=== PATIENT | female | born 1940 | race Caucasian/White ===

== ENCOUNTER → 2016-06-04 | Outpatient (CLI) | payer BC, MEDICARE ==
--- NOTE | 2016-06-05 09:29 | MM ---
Reason for exam: screening (asymptomatic). Last mammogram was performed 1 year and 1 month ago. History: Patient is postmenopausal and has history of other cancer at age 71. Family history of breast cancer in mother at age 50 and breast cancer in aunt at age 45. 3 benign excisional biopsies of the left breast. 3 benign excisional biopsies of the right breast. Physical Findings: A clinical breast exam by your physician is recommended on an annual basis and results should be correlated with mammographic findings. MG 3D Screening Mammo W/Cad Bilateral CC and MLO view(s) were taken. Prior study comparison: May 17, 2015, left breast MG 3d work up w/cad LT. April 29, 2015, bilateral MG screening mammo w CAD. There are scattered fibroglandular densities. Finding: There are typically benign calcifications in both breasts. No significant changes in finding since May 17, 2015 and April 29, 2015. ASSESSMENT: Benign, BI-RAD 2 RECOMMENDATION: Routine screening mammogram of both breasts in 1 year.
== END | disposition home or self-care (01) ==
LOC: RADMAMWWP 12:55
PROVIDERS: ATTEND Family Medicine
DX: Z12.31 Encounter for screening mammogram for malignant neoplasm of breast (principal)
CPT/HCPCS: 77063; G0202

== ENCOUNTER → 2016-08-27 | Outpatient (CLI) | payer MEDICARE ==
--- NOTE | 2016-08-27 15:54 | US ---
EXAMINATION TYPE: US kidneys/renal and bladder DATE OF EXAM: 08/27/2016 2:29 PM COMPARISON: CLINICAL HISTORY: N20.0 CALCULUS OF KIDNEY,N28.1 CYST OF KIDNEY. Follow up renal cysts EXAM MEASUREMENTS: Right Kidney: 12.2 x 4.7 x 4.1 cm Left Kidney: 10.7 x 4.4 x 5.6 cm Right Kidney: Multiple cystic lesions seen. 1- upper pole 1.5 x 1.3 x 1.4 cm. 2- 1.9 x 1.8 x 1.9 cm , lower pole/lateral. Echogenic focus, nonshadowing seen in lower pole = 0.4 x 0.3 cm. Left Kidney: Med echogenic lesion, nonshadowing = 0.6 cm. Cystic lesions seen. 1- 1.7 x 2.3 x 1.6 c m. 2- lower pole = 1.1 x 1.2 x 1.1 cm. This secondary appears complex. Bladder: distended, wnl as visualized Bilateral Jets seen IMPRESSION: 1. Multiple bilateral renal cysts. These appear to be simple. 2. Inferior pole renal stone without obstruction. 3.Hypoechoic area measuring 1.1 x 1.2 x 1.1 cm within the left kidney, CT or MRI of this region is re commended for additional evaluation.
== END | disposition home or self-care (01) ==
LOC: RADUSWWP 13:43
PROVIDERS: ATTEND Urology
DX: N20.0 Calculus of kidney (principal); N28.1 Cyst of kidney, acquired; R93.422 Abnormal radiologic findings on diagnostic imaging of left kidney
CPT/HCPCS: 76770

== ENCOUNTER → 2016-09-17 | Outpatient (CLI) | payer MEDICARE ==
[~2016-09-17] MED LIST: SODIUM CHLORIDE 0.9% 250 ML in EMPTY BAG 1 BAG IV PRN; SODIUM CHLORIDE 0.9% 500 ML in EMPTY BAG 1 BAG IV PRN; ZOLEDRONIC ACID 5 MG in SODIUM CHLORIDE 0.9% 100 ML IV ONE
[2016-09-17 14:09] VITALS: BP 124/90; PULSE 80; RESP 16; TEMP 97.8
== END | disposition home or self-care (01) ==
LOC: PROCWHC3 13:54
PROVIDERS: ATTEND Internal Medicine Rheumatology
DX: M81.0 Age-related osteoporosis without current pathological fracture (principal)
CPT/HCPCS: 96365; J3489

== ENCOUNTER → 2017-07-21 | Outpatient (CLI) | payer MEDICARE ==
--- NOTE | 2017-07-22 14:32 | MM ---
Reason for exam: screening (asymptomatic). Last mammogram was performed 1 year and 2 months ago. History: Patient is postmenopausal and has history of other cancer at age 71. Family history of breast cancer in mother at age 50 and breast cancer in aunt at age 45. 3 benign excisional biopsies of the left breast. 3 benign excisional biopsies of the right breast. Physical Findings: A clinical breast exam by your physician is recommended on an annual basis and results should be correlated with mammographic findings. MG 3D Screening Mammo W/Cad Bilateral CC and MLO view(s) were taken. Prior study comparison: June 04, 2016, bilateral MG 3d screening mammo w/cad. May 17, 2015, left breast MG 3d work up w/cad LT. There are scattered fibroglandular densities. No significant changes when compared with prior studies. ASSESSMENT: Benign, BI-RAD 2 RECOMMENDATION: Routine screening mammogram of both breasts in 1 year.
== END | disposition home or self-care (01) ==
LOC: RADMAMWWP 12:31
PROVIDERS: ATTEND Family Medicine
DX: Z12.31 Encounter for screening mammogram for malignant neoplasm of breast (principal)
CPT/HCPCS: 77063; 77067

== ENCOUNTER → 2017-10-14 | Outpatient (CLI) | payer MEDICARE | END | disposition home or self-care (01) | LOC: RADECHMAIN 11:48 | PROVIDERS: ATTEND Family Medicine | DX: R00.1 Bradycardia, unspecified (principal) | CPT/HCPCS: 93225; 93226 ==

== ENCOUNTER → 2018-09-23 | Outpatient (CLI) | payer MEDICARE ==
--- NOTE | 2018-09-27 14:19 | MM ---
Reason for exam: screening (asymptomatic). Last mammogram was performed 1 year and 2 months ago. History: Patient is postmenopausal and has history of other cancer at age 71. Family history of breast cancer in mother at age 50 and breast cancer in aunt at age 45. 3 benign excisional biopsies of the left breast. 3 benign excisional biopsies of the right breast. Physical Findings: A clinical breast exam by your physician is recommended on an annual basis and results should be correlated with mammographic findings. MG 3D Screening Mammo W/Cad Bilateral CC and MLO view(s) were taken. Prior study comparison: July 21, 2017, bilateral MG 3d screening mammo w/cad. June 04, 2016, bilateral MG 3d screening mammo w/cad. There is chronic nodularity in the right breast. No significant changes when compared with prior studies. ASSESSMENT: Benign, BI-RAD 2 RECOMMENDATION: Routine screening mammogram of both breasts in 1 year.
== END | disposition home or self-care (01) ==
LOC: RADMAMWWP 10:42
PROVIDERS: ATTEND Family Medicine
DX: Z12.31 Encounter for screening mammogram for malignant neoplasm of breast (principal)
CPT/HCPCS: 77063; 77067

== ENCOUNTER 2020-10-28 15:57 | Observation (INO) | payer MEDICARE ==
[2020-10-28 19:01] LABS: ALT 22 U/L (4-34); AST 28 U/L (14-36); African American GFR (CKD) >90 (>60 ml/min/1.73 sqM); Alkaline Phosphatase 59 U/L (38-126); Amylase 34 U/L (30-110); Anion Gap 8 mmol/L; Blood Urea Nitrogen 23 mg/dL (7-17); Calcium 9.5 mg/dL (8.4-10.2); Carbon Dioxide 30 mmol/L (22-30); Chloride 103 mmol/L (98-107); Glucose 122 mg/dL (74-99); Lipase 97 U/L (23-300); Non-African American GFR(CKD) 86 (>60 ml/min/1.73 sqM); Potassium 3.5 mmol/L (3.5-5.1); Sodium 141 mmol/L (137-145); Total Bilirubin 0.6 mg/dL (0.2-1.3); Total Protein 6.6 g/dL (6.3-8.2)
[2020-10-28 19:08] LABS: Basophils % (A) 0 %; Eosinophils % (A) 0 %; HCT 46.8 % (34.0-46.0); Lymphocytes # (A) 0.2 k/uL (1.0-4.8); Lymphocytes % (A) 2 %; MCH 29.9 pg (25.0-35.0); MCHC 32.1 g/dL (31.0-37.0); MCV 93.2 fL (80.0-100.0); Mean Platelet Volume 7.8; Monocytes # (A) 0.3 k/uL (0-1.0); Monocytes % (A) 3 %; Neutrophils # (A) 10.8 k/uL (1.3-7.7); Neutrophils % (A) 95 %; Platelet Count 375 k/uL (150-450); RBC 5.02 m/uL (3.80-5.40); RDW 13.8 % (11.5-15.5); WBC 11.4 k/uL (3.8-10.6)
[2020-10-28] MEDS ORDERED: ONDANSETRON 4 MG/2 ML VIAL IVP STA (19:25)
[2020-10-28] MEDS: SODIUM CHLORIDE 0.9% 1,000 ML IV SCH (19:31)
--- NOTE | 2020-10-28 22:09 | ED ---
Nausea/Vomiting/Diarrhea HPI - General Chief complaint: Nausea/Vomiting/Diarrhea Stated complaint: Vomiting/Diarrhea/Dehydration Time Seen by Provider: 10/28/20 18:45 Source: patient Mode of arrival: ambulatory Limitations: no limitations - History of Present Illness Initial comments: Kat is a very pleasant 80-year-old female who is brought to the emergency department today by her daughter. Patient was treated for urinary tract infection last week with oral Keflex. Patient completed the dose of anabiotic's. On Wednesday the patient developed significant diarrhea. She had multiple episodes of watery diarrhea. She contacted her primary care expressed concern that she could have C. diff. He recommended she start taking probiotics and Imodium. Today the patient developed profound nausea and vomiting. She's not been able tolerate any oral intake. She is not urinated since first thing this morning. She is concerned she is becoming dehydrated. She denies any significant abdominal pain. Denies fevers chills. Has no history of C. diff. - Related Data Home Medications Medication Instructions Recorded Confirmed Aspirin 81 mg PO DAILY 09/16/15 10/28/20 Atorvastatin [Lipitor] 10 mg PO DAILY 09/16/15 10/28/20 Calcium Carbonate [Calcium] 600 mg PO DAILY 09/16/15 10/28/20 Metoprolol Succinate (ER) [Toprol 50 mg PO DAILY 09/16/15 10/28/20 Xl] Potassium 99 mg PO DAILY 09/16/15 10/28/20 hydroCHLOROthiazide 25 mg PO DAILY 09/16/15 10/28/20 lisinopriL [Zestril] 20 mg PO DAILY 09/16/15 10/28/20 ALPRAZolam [Xanax] 0.25 mg PO DAILY PRN 10/28/20 10/28/20 Albuterol Inhaler [Ventolin Hfa 1 - 2 puff INHALATION RT-QID PRN 10/28/20 10/28/20 Inhaler] Cholecalciferol [Vitamin D3 (25 50 mcg PO DAILY 10/28/20 10/28/20 Mcg = 1000 Iu)] Dorzolamide/Timolol/Pf 1 drop BOTH EYES BID 10/28/20 10/28/20 [Dorzolamide 2%-Timolol 0.5%] Fish Oil/Dha/Epa [Fish Oil 1,200 1 cap PO DAILY 10/28/20 10/28/20 mg Fish Oil] Latanoprost/Pf [Latanoprost 0.005% 1 drop BOTH EYES HS 10/28/20 10/28/20 Eye Drop] Loratadine [Claritin] 10 mg PO DAILY PRN 10/28/20 10/28/20 Magnesium Oxide 400 mg PO DAILY 10/28/20 10/28/20 Turmeric-Circumin 500mg 1 tab PO DAILY 10/28/20 10/28/20 metFORMIN HCL ER [Glucophage Xr] 1,000 mg PO DAILY 10/28/20 10/28/20 predniSONE See Taper PO DAILY 10/28/20 10/28/20 Allergies Allergy/AdvReac Type Severity Reaction Status Date / Time morphine Allergy Unknown Verified 10/28/20 21:44 Review of Systems ROS Statement: Those systems with pertinent positive or pertinent negative responses have been documented in the HPI. ROS Other: All systems not noted in ROS Statement are negative. Past Medical History Past Medical History: Cancer, Hypertension Additional Past Medical History / Comment(s): PMR, c-diff, breast biopsy History of Any Multi-Drug Resistant Organisms: C-DIFF Date of last positivie culture/infection: 10/28/20 Past Surgical History: Appendectomy, Breast Surgery Past Psychological History: No Psychological Hx Reported Smoking Status: Former smoker Past Alcohol Use History: Occasional Past Drug Use History: None Reported General Exam - General Exam Comments Initial Comments: Physical Exam GENERAL: Patient is well-developed and well-nourished. Patient is nontoxic and well- hydrated and is in no distress. HENT: Normocephalic, Atraumatic. EYES: PERRL, EOMI PULMONARY: Unlabored respirations. No audible rales rhonchi or wheezing was noted. CARDIOVASCULAR: There is a regular rate and rhythm without any murmurs gallops or rubs. ABDOMEN: Soft and nontender with normal bowel sounds. SKIN: skin is dry : Deferred NEUROLOGIC: Patient is alert and oriented x3. Moving all extremities spontaneously MUSCULOSKELETAL: Normal extremities with adequate strength and full range of motion. No lower extremity swelling or edema. No calf tenderness. PSYCHIATRIC: Normal psychiatric evaluation. Limitations: no limitations Course Vital Signs 10/28/20 10/28/20 10/28/20 17:07 18:32 20:57 Temperature 97.8 F Pulse Rate 93 88 94 Respiratory 18 18 18 Rate Blood Pressure 129/78 130/83 118/78 O2 Sat by Pulse 95 94 L 96 Oximetry 10/28/20 23:05 Temperature 97.9 F Pulse Rate 89 Respiratory 18 Rate Blood Pressure 117/63 O2 Sat by Pulse 95 Oximetry Medical Decision Making - Lab Data Result diagrams: 10/28/20 18:43 10/28/20 18:43 Lab Results 10/28/20 10/28/20 10/28/20 Range/Units 18:43 18:43 20:57 WBC 11.4 H (3.8-10.6) k/uL RBC 5.02 (3.80-5.40) m/uL Hgb 15.0 (11.4-16.0) gm/dL Hct 46.8 H (34.0-46.0) % MCV 93.2 (80.0-100.0) fL MCH 29.9 (25.0-35.0) pg MCHC 32.1 (31.0-37.0) g/dL RDW 13.8 (11.5-15.5) % Plt Count 375 (150-450) k/uL MPV 7.8 Neutrophils % 95 % Lymphocytes % 2 % Monocytes % 3 % Eosinophils % 0 % Basophils % 0 % Neutrophils # 10.8 H (1.3-7.7) k/uL Lymphocytes # 0.2 L (1.0-4.8) k/uL Monocytes # 0.3 (0-1.0) k/uL Eosinophils # 0.0 (0-0.7) k/uL Basophils # 0.0 (0-0.2) k/uL Sodium 141 (137-145) mmol/L Potassium 3.5 (3.5-5.1) mmol/L Chloride 103 (98-107) mmol/L Carbon Dioxide 30 (22-30) mmol/L Anion Gap 8 mmol/L BUN 23 H (7-17) mg/dL Creatinine 0.59 (0.52-1.04) mg/dL Est GFR (CKD-EPI)AfAm >90 (>60 ml/min/1.73 sqM) Est GFR (CKD-EPI)NonAf 86 (>60 ml/min/1.73 sqM) Glucose 122 H (74-99) mg/dL Calcium 9.5 (8.4-10.2) mg/dL Total Bilirubin 0.6 (0.2-1.3) mg/dL AST 28 (14-36) U/L ALT 22 (4-34) U/L Alkaline Phosphatase 59 (38-126) U/L Total Protein 6.6 (6.3-8.2) g/dL Albumin 4.0 (3.5-5.0) g/dL Amylase 34 (30-110) U/L Lipase 97 (23-300) U/L Coronavirus (PCR) Not Detected (Not Detectd) - EKG Data -: EKG Interpreted by [place] EKG shows normal: sinus rhythm EKG Comments: EKG was obtained after the patient had some chest discomfort after medication administration, EKG obtained at 2325, rate is 88, sinus normal axis, normal intervals, no acute ST elevations, mild depressions in inferior leads no evidence of acute infarction. Disposition Clinical Impression: Dehydration, Nausea and vomiting Disposition: HOME SELF-CARE Condition: Stable Is patient prescribed a controlled substance at d/c from ED?: No
[2020-10-28] MEDS ORDERED: NALOXONE 0.4 MG/ML 1 ML VIAL IV PRN (22:50)
[2020-10-28] MEDS ORDERED: ONDANSETRON 4 MG/2 ML VIAL IVP PRN (22:50)
[2020-10-29] MEDS ORDERED: ALBUTEROL NEBULIZED 2.5 MG/3 ML INHALATION PRN (00:20)
[2020-10-29] MEDS: SODIUM CHLORIDE 0.9% 1,000 ML IV SCH ×2 (03:35→08:16)
[2020-10-29 07:35] VITALS: RESP 15; TEMP 98.5
[2020-10-29 08:21] VITALS: BP 107/70; PULSE 74
[2020-10-29] MEDS ORDERED: CALCIUM CARBONATE 500 MG CHEWABLE PO SCH (09:00)
[2020-10-29] MEDS ORDERED: NON FORMULARY DRUG (Fish Oil/Dha/Epa [Fish Oil 1,200 Mg Fish Oil] 1 EACH Capsule) PO SCH (09:00)
[2020-10-29] MEDS ORDERED: hydroCHLOROthiazide 25 MG TAB PO SCH (09:00)
[2020-10-29] MEDS ORDERED: predniSONE 1 MG TAB PO SCH ×2 (09:00)
[2020-10-29] MEDS ORDERED: ATORVASTATIN 10 MG TAB PO SCH (09:00)
[2020-10-29] MEDS ORDERED: LORATADINE 10 MG TAB PO PRN (09:00)
[2020-10-29] MEDS ORDERED: NON FORMULARY DRUG (Potassium [Potassium] 99 MG Tablet) PO SCH (09:00)
[2020-10-29] MEDS ORDERED: lisinopriL 20 MG TAB PO SCH (09:00)
[2020-10-29] MEDS ORDERED: ALPRAZolam 0.25 MG TAB PO PRN (09:00)
[2020-10-29] MEDS ORDERED: METOPROLOL SUCCINATE (ER) 25 MG TAB.ER.24H PO SCH (09:00)
[2020-10-29] MEDS ORDERED: predniSONE 1 MG TAB PO ONE ×2 (09:00→09:15)
[2020-10-29] MEDS ORDERED: ASPIRIN 81 MG PO SCH (09:00)
[2020-10-29] MEDS ORDERED: CHOLECALCIFEROL 25 MCG (1000 IU) TABLET PO SCH (09:00)
[2020-10-29] MEDS ORDERED: METOPROLOL SUCCINATE (ER) 50 MG TAB.ER.24H PO SCH (09:00)
[2020-10-29] MEDS ORDERED: metFORMIN 500 MG TAB PO SCH (09:00)
[2020-10-29] MEDS ORDERED: MAGNESIUM OXIDE 400 MG TAB PO SCH (09:00)
[2020-10-29] MEDS ORDERED: [UNRECOGNIZED DRUG - OTHER] PO SCH (09:00)
[2020-10-29] MEDS ORDERED: DORZOLAMIDE-TIMOLOL 2.23%/0.68 10ML BTL BOTH EYES SCH (09:00)
--- NOTE | 2020-10-29 12:11 | P.HPIM ---
History of Present Illness H&P Date: 10/29/20 HISTORY AND PHYSICAL AND DISCHARGE SUMMARY: HISTORY OF PRESENT ILLNESS This is an 80-year-old female patient of Dr. Ngo with past medical history of hypertension, hyperlipidemia, diabetes mellitus type 2, glaucoma, generalized anxiety disorder, polymyalgia rheumatica, remote history of tobacco use. Patient gives history that she was treated for urinary tract infection although she did not have any symptoms and completed a three-day course of antibiotics. She then had many diarrhea for 1 day. She states she went for 5 times daily Lomotil which seemed to help. She came into the emergency room yesterday. She was afebrile, heart rate 93, blood pressure 129/70, pulse ox 95% on room air. WBC 11.4, hemoglobin 15, platelet count 375. Electrolytes normal. BUN 23 creatinine 0.59. Blood sugar 122. Liver function tests were normal. Coronavirus PCR not detected. EKG was sinus rhythm with no acute ST changes. Patient was placed in the observation unit. She had 2 bowel movements this morning. One was formed and the second was loose. The second specimen was sent for C. difficile toxin. Patient denies having any abdominal pain, no cramping. She denies having any fever or chills. REVIEW OF SYSTEMS Constitutional: No fever, no chills, no night sweats. No weight change. No weakness, fatigue or lethargy. No daytime sleepiness. EENT: No headache. No blurred vision or double vision, no loss of vision. No loss of Hearing, no ringing in the ears, no dizziness. No nasal drainage or congestion. No epistaxis. No sore throat. Lungs: No shortness of breath, cough, no sputum production. No wheezing. Cardiovascular: No chest pain, no lower extremity edema. No palpitations. No paroxysmal nocturnal dyspnea. No orthopnea. No lightheadedness or dizziness. No syncopal episodes. Abdominal: No abdominal pain. No nausea, vomiting. Reports diarrhea. No constipation. No bloody or tarry stools.. No loss of appetite. Genitourinary: No dysuria, increased frequency, urgency. No urinary retention. Musculoskeletal: No myalgias. No muscle weakness, no gait dysfunction, no frequent falls. No back pain. No neck pain. Integumentary: No wounds, no lesions. No rash or pruritus. No unusual bruising. No change in hair or nails. Neurologic: No aphasia. No facial droop. No change in mentation. No head injury. No headache. No paralysis. No paresthesia. Psychiatric: No depression. No anxiety. No mood swings. Endocrine: No abnormal blood sugars. No weight change. No excessive sweating or thirst. No cold intolerance. SOCIAL HISTORY Patient has a history of smoking. She quit many years ago. She drinks occasional glass of wine. She lives at home and is a . FAMILY HISTORY Mother from breast cancer at the age of 73, history of breast cancer in her maternal grandmother and maternal aunt. Father from a massive myocardial infarction. Patient has one sister with history of atrial fibrillation and one daughter with diabetes. PHYSICAL EXAMINATION Gen: This is an 80-year-old female. She is resting in bed and appears to be comfortable and in no acute distress. HEENT: Head is atraumatic, normocephalic. Pupils equal, round. Sclerae is anicteric. NECK: Supple. No JVD. No lymphadenopathy. No thyromegaly. LUNGS: Clear to auscultation. No wheezes or rhonchi. No intercostal retractions. HEART: Regular rate and rhythm. No murmur. ABDOMEN: Soft. Bowel sounds are present. No masses. No tenderness. EXTREMITIES: No pedal edema. No calf tenderness. NEUROLOGICAL: Patient is awake, alert and oriented x3. Cranial nerves 2 through 12 are grossly intact. ASSESSMENT AND PLAN 1. Diarrhea following treatment for urinary tract infection with Keflex. Stool culture sent for C. difficile toxin. 2. Recent urinary tract infection completed course of antibiotics with Keflex. 3. Hypertension. Patient was on the hypotensive side and lisinopril and hydrochlorothiazide discontinued until patient follows up with her physician. Also Toprol-XL decreased from 100 mg daily to 50 mg daily. 4. Hyperlipidemia. 5. Diabetes mellitus type 2. 6. Glaucoma. 7. Generalized anxiety disorder. 8. Polymyalgia rheumatica next field remote history of tobacco use. Patient placed as an observation status. DISCHARGE PLAN Home today. DISCHARGE MEDICATION LIST Aspirin 81 mg PO DAILY 09/16/15 [History] Atorvastatin [Lipitor] 10 mg PO DAILY 09/16/15 [History] Calcium Carbonate [Calcium] 600 mg PO DAILY 09/16/15 [History] Potassium 99 mg PO DAILY 09/16/15 [History] ALPRAZolam [Xanax] 0.25 mg PO DAILY PRN 10/28/20 [History] Albuterol Inhaler [Ventolin Hfa Inhaler] 1 - 2 puff INHALATION RT-QID PRN 10/28/20 [History] Cholecalciferol [Vitamin D3 (25 Mcg = 1000 Iu)] 50 mcg PO DAILY 10/28/20 [History] Dorzolamide/Timolol/Pf [Dorzolamide 2%-Timolol 0.5%] 1 drop BOTH EYES BID 10/28/20 [History] Fish Oil/Dha/Epa [Fish Oil 1,200 mg Fish Oil] 1 cap PO DAILY 10/28/20 [History] Latanoprost/Pf [Latanoprost 0.005% Eye Drop] 1 drop BOTH EYES HS 10/28/20 [History] Loratadine [Claritin] 10 mg PO DAILY PRN 10/28/20 [History] Magnesium Oxide 400 mg PO DAILY 10/28/20 [History] Turmeric-Circumin 500mg 1 tab PO DAILY 10/28/20 [History] metFORMIN HCL ER [Glucophage Xr] 1,000 mg PO DAILY 10/28/20 [History] predniSONE See Taper PO DAILY 10/28/20 [History] Ciprofloxacin HCl [Cipro] 500 mg PO Q12HR #14 tablet 10/29/20 [Rx] Metoprolol Succinate (ER) [Toprol XL] 50 mg PO DAILY #30 tab 10/29/20 [Rx] metroNIDAZOLE [Flagyl] 500 mg PO TID #21 tab 10/29/20 [Rx] Lisinopril and hydrochlorothiazide discontinued Toprol-XL decreased to 50 mg daily. Impression and plan of care have been directed as dictated by the signing physician. Brook Chapin nurse practitioner acting as scribe for signing physician. Past Medical History Past Medical History: Cancer, Hypertension Additional Past Medical History / Comment(s): PMR, c-diff, breast biopsy History of Any Multi-Drug Resistant Organisms: C-DIFF Date of last positivie culture/infection: 10/28/20 MDRO Source:: stool Past Surgical History: Appendectomy, Breast Surgery Past Anesthesia/Blood Transfusion Reactions: No Reported Reaction Past Psychological History: No Psychological Hx Reported Smoking Status: Former smoker Past Alcohol Use History: Occasional Past Drug Use History: None Reported Medications and Allergies Home Medications Medication Instructions Recorded Confirmed Type Aspirin 81 mg PO DAILY 09/16/15 10/28/20 History Atorvastatin [Lipitor] 10 mg PO DAILY 09/16/15 10/28/20 History Calcium Carbonate [Calcium] 600 mg PO DAILY 09/16/15 10/28/20 History Potassium 99 mg PO DAILY 09/16/15 10/28/20 History ALPRAZolam [Xanax] 0.25 mg PO DAILY PRN 10/28/20 10/28/20 History Albuterol Inhaler [Ventolin Hfa 1 - 2 puff INHALATION RT-QID PRN 10/28/20 10/28/20 History Inhaler] Cholecalciferol [Vitamin D3 (25 50 mcg PO DAILY 10/28/20 10/28/20 History Mcg = 1000 Iu)] Dorzolamide/Timolol/Pf 1 drop BOTH EYES BID 10/28/20 10/28/20 History [Dorzolamide 2%-Timolol 0.5%] Fish Oil/Dha/Epa [Fish Oil 1,200 1 cap PO DAILY 10/28/20 10/28/20 History mg Fish Oil] Latanoprost/Pf [Latanoprost 0.005% 1 drop BOTH EYES HS 10/28/20 10/28/20 History Eye Drop] Loratadine [Claritin] 10 mg PO DAILY PRN 10/28/20 10/28/20 History Magnesium Oxide 400 mg PO DAILY 10/28/20 10/28/20 History Turmeric-Circumin 500mg 1 tab PO DAILY 10/28/20 10/28/20 History metFORMIN HCL ER [Glucophage Xr] 1,000 mg PO DAILY 10/28/20 10/28/20 History predniSONE See Taper PO DAILY 10/28/20 10/28/20 History Ciprofloxacin HCl [Cipro] 500 mg PO Q12HR #14 tablet 10/29/20 Rx Metoprolol Succinate (ER) [Toprol 50 mg PO DAILY #30 tab 10/29/20 Rx XL] metroNIDAZOLE [Flagyl] 500 mg PO TID #21 tab 10/29/20 Rx Allergies Allergy/AdvReac Type Severity Reaction Status Date / Time morphine Allergy Unknown Verified 10/28/20 21:44 Physical Exam Vitals: Vital Signs Temp Pulse Pulse Resp BP BP Pulse Ox 10/29/20 08:20 74 107/70 98 10/29/20 07:00 98.5 F 76 15 100/66 93 L 10/29/20 02:00 98.8 F 87 17 94/56 91 L 10/29/20 00:02 98.9 F 85 16 103/64 95 10/28/20 23:05 97.9 F 89 18 117/63 95 10/28/20 20:57 94 18 118/78 96 10/28/20 18:32 88 18 130/83 94 L 10/28/20 17:07 97.8 F 93 18 129/78 95 Intake and Output 10/28/20 10/29/20 10/29/20 22:59 06:59 14:59 Other: Voiding Method Toilet # Voids 1 Weight 66.678 kg 66.678 kg Results CBC & Chem 7: 10/28/20 18:43 10/28/20 18:43 Labs: Abnormal Lab Results - Last 24 Hours (Table) 10/28/20 10/28/20 Range/Units 18:43 18:43 WBC 11.4 H (3.8-10.6) k/uL Hct 46.8 H (34.0-46.0) % Neutrophils # 10.8 H (1.3-7.7) k/uL Lymphocytes # 0.2 L (1.0-4.8) k/uL BUN 23 H (7-17) mg/dL Glucose 122 H (74-99) mg/dL Thrombosis Risk Factor Assmnt - Choose All That Apply Each Factor Represents 1 point: Obesity (BMI >25) Each Risk Factor Represents 3 Points: Age 75 years or older Thrombosis Risk Factor Assessment Total Risk Factor Score: 4 Thrombosis Risk Factor Assessment Level: Moderate Risk
[2020-10-29] MEDS ORDERED: LATANOPROST 0.005% OPHTH DROPS 2.5 ML BTL BOTH EYES SCH (21:00)
[2020-10-30] MEDS ORDERED: predniSONE 1 MG TAB PO SCH (09:00)
== END 2020-10-29 14:34 | disposition home or self-care (01) ==
LOC: EC 15:57 → 6NMEDSUR 22:50
PROVIDERS: ADMIT Internal Medicine; ATTEND Internal Medicine
DX: R19.7 Diarrhea, unspecified (principal); R11.2 Nausea with vomiting, unspecified; Z87.440 Personal history of urinary (tract) infections; E86.0 Dehydration; I10 Essential (primary) hypertension; E11.9 Type 2 diabetes mellitus without complications; E78.5 Hyperlipidemia, unspecified; F41.1 Generalized anxiety disorder; H40.9 Unspecified glaucoma; M35.3 Polymyalgia rheumatica; I95.9 Hypotension, unspecified; E66.9 Obesity, unspecified; Z68.28 Body mass index [BMI] 28.0-28.9, adult; Z20.822 Contact with and (suspected) exposure to COVID-19; Z79.82 Long term (current) use of aspirin; Z79.899 Other long term (current) drug therapy; Z79.84 Long term (current) use of oral hypoglycemic drugs; Z79.52 Long term (current) use of systemic steroids; Z88.5 Allergy status to narcotic agent; Z16.24 Resistance to multiple antibiotics; Z90.49 Acquired absence of other specified parts of digestive tract; Z98.890 Other specified postprocedural states; Z87.891 Personal history of nicotine dependence; Z80.3 Family history of malignant neoplasm of breast; Z82.49 Family history of ischemic heart disease and other diseases of the circulatory system; Z83.3 Family history of diabetes mellitus
CPT/HCPCS: 96376; 96374; 99285; 36415; 93005; 80053; 82150; 83690; 85025; 87324; 87635; G0378 ×2; J2405; J7512

== ENCOUNTER 2020-10-29 23:03 | Observation (INO) | payer MEDICARE ==
[2020-10-29] MEDS ORDERED: SODIUM CHLORIDE 0.9% 1,000 ML IV STA (23:19)
[2020-10-30 00:10] LABS: Basophils % (A) 0 %; Eosinophils % (A) 0 %; HCT 42.2 % (34.0-46.0); HGB 13.5 gm/dL (11.4-16.0); Lymphocytes # (A) 0.3 k/uL (1.0-4.8); Lymphocytes % (A) 4 %; MCH 29.8 pg (25.0-35.0); MCHC 32.1 g/dL (31.0-37.0); MCV 92.9 fL (80.0-100.0); Mean Platelet Volume 7.6; Monocytes # (A) 0.3 k/uL (0-1.0); Monocytes % (A) 3 %; Neutrophils # (A) 8.4 k/uL (1.3-7.7); Neutrophils % (A) 92 %; Platelet Count 302 k/uL (150-450); RBC 4.54 m/uL (3.80-5.40); RDW 13.9 % (11.5-15.5); WBC 9.1 k/uL (3.8-10.6)
[2020-10-30 00:15] LABS: ALT 23 U/L (4-34); AST 35 U/L (14-36); African American GFR (CKD) >90 (>60 ml/min/1.73 sqM); Albumin 3.3 g/dL (3.5-5.0); Alkaline Phosphatase 51 U/L (38-126); Anion Gap 4 mmol/L; Blood Urea Nitrogen 17 mg/dL (7-17); Calcium 8.6 mg/dL (8.4-10.2); Carbon Dioxide 28 mmol/L (22-30); Chloride 105 mmol/L (98-107); Glucose 108 mg/dL (74-99); Magnesium 1.7 mg/dL (1.6-2.3); Non-African American GFR(CKD) 85 (>60 ml/min/1.73 sqM); Phosphorus 1.3 mg/dL (2.5-4.5); Potassium 3.3 mmol/L (3.5-5.1); Sodium 137 mmol/L (137-145); Total Bilirubin 0.3 mg/dL (0.2-1.3); Total Protein 5.8 g/dL (6.3-8.2)
[2020-10-30 00:16] LABS: Appearance,Urine Cloudy (Clear); Bacteria,Urine Moderate /hpf; Bilirubin,Urine Negative (Negative); Blood,Urine Moderate (Negative); Calcium Oxalate Crystals,Urine Many /hpf; Color,Urine Yellow; Glucose,Urine (UA) Negative (Negative); Ketones,Urine 1+ (Negative); Leukocyte Esterase,Urine Large (Negative); Mucus,Urine Few /hpf; Nitrite,Urine Positive (Negative); Protein,Urine 1+ (Negative); RBC,Urine 11 /hpf (0-5); Specific Gravity,Urine 1.026 (1.001-1.035); Squamous Epithelial Cell,Urine 4 /hpf (0-4); Urobilinogen,Urine <2.0 mg/dL (<2.0); WBC,Urine 127 /hpf (0-5)
[2020-10-30] MEDS ORDERED: NALOXONE 0.4 MG/ML 1 ML VIAL IV PRN (00:21)
[2020-10-30] MEDS ORDERED: HYDROmorphone 1 MG/ML 1 ML SYRINGE IVP PRN (00:21)
[2020-10-30] MEDS ORDERED: ONDANSETRON 4 MG/2 ML VIAL IVP PRN (00:21)
[2020-10-30] MEDS ORDERED: PROCHLORPERAZINE INJ 10 MG/2 ML VIAL IVP PRN (00:24)
[2020-10-30] MEDS ORDERED: PROCHLORPERAZINE INJ 10 MG/2 ML VIAL IVP STA (00:24)
[2020-10-30] MEDS ORDERED: METOCLOPRAMIDE 5 MG/ML 2 ML VIAL IVP PRN (00:24)
[2020-10-30] MEDS ORDERED: diphenhydrAMINE 50 MG/ML 1 ML VIAL IVP PRN (00:24)
--- NOTE | 2020-10-30 00:27 | ED ---
Nausea/Vomiting/Diarrhea HPI - General Chief complaint: Nausea/Vomiting/Diarrhea Stated complaint: Nausea, Vomiting Time Seen by Provider: 10/29/20 23:19 Source: patient Mode of arrival: ambulatory Limitations: no limitations - Related Data Home Medications Medication Instructions Recorded Confirmed Aspirin 81 mg PO DAILY 09/16/15 10/28/20 Atorvastatin [Lipitor] 10 mg PO DAILY 09/16/15 10/28/20 Calcium Carbonate [Calcium] 600 mg PO DAILY 09/16/15 10/28/20 Potassium 99 mg PO DAILY 09/16/15 10/28/20 ALPRAZolam [Xanax] 0.25 mg PO DAILY PRN 10/28/20 10/28/20 Albuterol Inhaler [Ventolin Hfa 1 - 2 puff INHALATION RT-QID PRN 10/28/20 10/28/20 Inhaler] Cholecalciferol [Vitamin D3 (25 50 mcg PO DAILY 10/28/20 10/28/20 Mcg = 1000 Iu)] Dorzolamide/Timolol/Pf 1 drop BOTH EYES BID 10/28/20 10/28/20 [Dorzolamide 2%-Timolol 0.5%] Fish Oil/Dha/Epa [Fish Oil 1,200 1 cap PO DAILY 10/28/20 10/28/20 mg Fish Oil] Latanoprost/Pf [Latanoprost 0.005% 1 drop BOTH EYES HS 10/28/20 10/28/20 Eye Drop] Loratadine [Claritin] 10 mg PO DAILY PRN 10/28/20 10/28/20 Magnesium Oxide 400 mg PO DAILY 10/28/20 10/28/20 Turmeric-Circumin 500mg 1 tab PO DAILY 10/28/20 10/28/20 metFORMIN HCL ER [Glucophage Xr] 1,000 mg PO DAILY 10/28/20 10/28/20 predniSONE See Taper PO DAILY 10/28/20 10/28/20 Previous Rx's Medication Instructions Recorded Ciprofloxacin HCl [Cipro] 500 mg PO Q12HR #14 tablet 10/29/20 Metoprolol Succinate (ER) [Toprol 50 mg PO DAILY #30 tab 10/29/20 XL] metroNIDAZOLE [Flagyl] 500 mg PO TID #21 tab 10/29/20 Allergies Allergy/AdvReac Type Severity Reaction Status Date / Time morphine Allergy Unknown Verified 10/29/20 23:04 Review of Systems ROS Statement: Those systems with pertinent positive or pertinent negative responses have been documented in the HPI. ROS Other: All systems not noted in ROS Statement are negative. Past Medical History Past Medical History: Cancer, Hypertension Additional Past Medical History / Comment(s): PMR, c-diff, breast biopsy History of Any Multi-Drug Resistant Organisms: C-DIFF Date of last positivie culture/infection: 10/28/20 MDRO Source:: stool Past Surgical History: Appendectomy, Breast Surgery Past Anesthesia/Blood Transfusion Reactions: No Reported Reaction Past Psychological History: No Psychological Hx Reported Smoking Status: Former smoker Past Alcohol Use History: Occasional Past Drug Use History: None Reported General Exam Limitations: no limitations Course Vital Signs 10/29/20 23:04 Temperature 99.3 F Pulse Rate 91 Respiratory 16 Rate Blood Pressure 158/81 O2 Sat by Pulse 94 L Oximetry Medical Decision Making - Lab Data Result diagrams: 10/29/20 23:33 10/29/20 23:33 Lab Results 10/29/20 10/29/20 10/29/20 Range/Units 23:33 23:33 23:33 WBC 9.1 (3.8-10.6) k/uL RBC 4.54 (3.80-5.40) m/uL Hgb 13.5 (11.4-16.0) gm/dL Hct 42.2 (34.0-46.0) % MCV 92.9 (80.0-100.0) fL MCH 29.8 (25.0-35.0) pg MCHC 32.1 (31.0-37.0) g/dL RDW 13.9 (11.5-15.5) % Plt Count 302 (150-450) k/uL MPV 7.6 Neutrophils % 92 % Lymphocytes % 4 % Monocytes % 3 % Eosinophils % 0 % Basophils % 0 % Neutrophils # 8.4 H (1.3-7.7) k/uL Lymphocytes # 0.3 L (1.0-4.8) k/uL Monocytes # 0.3 (0-1.0) k/uL Eosinophils # 0.0 (0-0.7) k/uL Basophils # 0.0 (0-0.2) k/uL Sodium 137 (137-145) mmol/L Potassium 3.3 L (3.5-5.1) mmol/L Chloride 105 (98-107) mmol/L Carbon Dioxide 28 (22-30) mmol/L Anion Gap 4 mmol/L BUN 17 (7-17) mg/dL Creatinine 0.61 (0.52-1.04) mg/dL Est GFR (CKD-EPI)AfAm >90 (>60 ml/min/1.73 sqM) Est GFR (CKD-EPI)NonAf 85 (>60 ml/min/1.73 sqM) Glucose 108 H (74-99) mg/dL Plasma Lactic Acid Jani (0.7-2.0) mmol/L Calcium 8.6 (8.4-10.2) mg/dL Phosphorus 1.3 L (2.5-4.5) mg/dL Magnesium 1.7 (1.6-2.3) mg/dL Total Bilirubin 0.3 (0.2-1.3) mg/dL AST 35 (14-36) U/L ALT 23 (4-34) U/L Alkaline Phosphatase 51 (38-126) U/L Total Protein 5.8 L (6.3-8.2) g/dL Albumin 3.3 L (3.5-5.0) g/dL Urine Color Yellow Urine Appearance Cloudy H (Clear) Urine pH 6.0 (5.0-8.0) Ur Specific [place] 1.026 (1.001-1.035) Urine Protein 1+ H (Negative) Urine Glucose (UA) Negative (Negative) Urine Ketones 1+ H (Negative) Urine Blood Moderate H (Negative) Urine Nitrite Positive H (Negative) Urine Bilirubin Negative (Negative) Urine Urobilinogen <2.0 (<2.0) mg/dL Ur Leukocyte Esterase Large H (Negative) Urine RBC 11 H (0-5) /hpf Urine WBC 127 H (0-5) /hpf Ur Squamous Epith Cells 4 (0-4) /hpf Calcium Oxalate Crystal Many H (None) /hpf Urine Bacteria Moderate H (None) /hpf Urine Mucus Few H (None) /hpf 10/29/20 Range/Units 23:33 WBC (3.8-10.6) k/uL RBC (3.80-5.40) m/uL Hgb (11.4-16.0) gm/dL Hct (34.0-46.0) % MCV (80.0-100.0) fL MCH (25.0-35.0) pg MCHC (31.0-37.0) g/dL RDW (11.5-15.5) % Plt Count (150-450) k/uL MPV Neutrophils % % Lymphocytes % % Monocytes % % Eosinophils % % Basophils % % Neutrophils # (1.3-7.7) k/uL Lymphocytes # (1.0-4.8) k/uL Monocytes # (0-1.0) k/uL Eosinophils # (0-0.7) k/uL Basophils # (0-0.2) k/uL Sodium (137-145) mmol/L Potassium (3.5-5.1) mmol/L Chloride (98-107) mmol/L Carbon Dioxide (22-30) mmol/L Anion Gap mmol/L BUN (7-17) mg/dL Creatinine (0.52-1.04) mg/dL Est GFR (CKD-EPI)AfAm (>60 ml/min/1.73 sqM) Est GFR (CKD-EPI)NonAf (>60 ml/min/1.73 sqM) Glucose (74-99) mg/dL Plasma Lactic Acid Jani 0.9 (0.7-2.0) mmol/L Calcium (8.4-10.2) mg/dL Phosphorus (2.5-4.5) mg/dL Magnesium (1.6-2.3) mg/dL Total Bilirubin (0.2-1.3) mg/dL AST (14-36) U/L ALT (4-34) U/L Alkaline Phosphatase (38-126) U/L Total Protein (6.3-8.2) g/dL Albumin (3.5-5.0) g/dL Urine Color Urine Appearance (Clear) Urine pH (5.0-8.0) Ur Specific [place] (1.001-1.035) Urine Protein (Negative) Urine Glucose (UA) (Negative) Urine Ketones (Negative) Urine Blood (Negative) Urine Nitrite (Negative) Urine Bilirubin (Negative) Urine Urobilinogen (<2.0) mg/dL Ur Leukocyte Esterase (Negative) Urine RBC (0-5) /hpf Urine WBC (0-5) /hpf Ur Squamous Epith Cells (0-4) /hpf Calcium Oxalate Crystal (None) /hpf Urine Bacteria (None) /hpf Urine Mucus (None) /hpf - EKG Data -: EKG Interpreted by Me (EKG is sinus rhythm rate of 86 DE 186 QRS 12 4 QTC 4:30) Disposition Clinical Impression: Dehydration, Nausea and vomiting, Gastroenteritis Disposition: ADMITTED IP TO THIS HOSP Condition: Fair Is patient prescribed a controlled substance at d/c from ED?: No Referrals: Los Ngo MD [Primary Care Provider] - 1-2 days
--- NOTE | 2020-10-30 01:14 | XR ---
EXAMINATION TYPE: XR chest 2V DATE OF EXAM: 10/30/2020 COMPARISON: NONE HISTORY: Weakness TECHNIQUE: 2 views FINDINGS: Heart is enlarged. There is no heart failure. Thoracic aorta is atheromatous. There are no hilar masses. Costophrenic angles are clear. IMPRESSION: Cardiomegaly. No active cardiopulmonary disease. Atheromatous tortuous thoracic aorta.
[2020-10-30] MEDS: DEXTROSE 5%-0.45% NACL 1,000 ML IV SCH (05:57)
[2020-10-30] MEDS ORDERED: ALPRAZolam 0.25 MG TAB PO PRN (09:37)
[2020-10-30] MEDS ORDERED: LORATADINE 10 MG TAB PO PRN (09:37)
[2020-10-30] MEDS ORDERED: IOPAMIDOL CONTRAST (ORAL USE) VIAL PO PRN (10:18)
[2020-10-30] MEDS ORDERED: metroNIDAZOLE-NS PMX 500 MG in SALINE 1 100ML.BAG IVPB SCH (11:00)
--- NOTE | 2020-10-30 11:42 | P.GSCN ---
History of Present Illness Consult date: 10/30/20 History of present illness: CHIEF COMPLAINT: Diarrhea HISTORY OF PRESENT ILLNESS: This is a 80-year-old female with a known history of hypertension, hyperlipidemia, diabetes mellitus type 2, anxiety, and polymyalgia rheumatica. 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 Patient presents to the hospital with complaints of diarrhea for the past 6 days. She reports she is having loose watery stools about every 15 minutes. The stools are yellowish in color. She denies any blood present in the stools. She had recently been treated for UTI in the outpatient setting and had taken Keflex. She reports that the diarrhea seemed to start after taking the antibiotic. Stool for C. diff was negative. Patient denies any abdominal pain. She did report nausea with decreased appetite. Denies any fever chills or sweats. Medicine service has ordered a computed tomography scan of the abdomen. Patient reports her last colonoscopy was 4 years ago and she states was normal. PAST MEDICAL HISTORY: See list. PAST SURGICAL HISTORY: See list. MEDICATIONS: See list. ALLERGIES: See list. SOCIAL HISTORY: No illicit drug use. REVIEW OF SYSTEMS: CONSTITUTIONAL: Denies fever or chills. HEENT: Denies blurred vision, vision changes, or eye pain. Denies hemoptysis ENDOCRINE: Denies heat or cold intolerance. CARDIOVASCULAR: Denies chest pain or pressure. RESPIRATORY: No shortness of breath. GASTROINTESTINAL: Please refer to HPI NEURO: Denies history of seizures. PSYCH: No depression or suicidal ideation HEMATOLOGIC: Denies bleeding disorders. LYMPHATIC: The patient denies any lumps and bumps around the neck. GENITOURINARY: Denies any blood in urine or increased urinary frequency. MUSCULOSKELETAL: Denies myalgias. Denies joint swelling. Denies decreased range of motion beyond patients baseline. SKIN: Denies pruitis. Denies rash. PHYSICAL EXAM: VITAL SIGNS: Reviewed GENERAL: Well-developed in no acute distress. HEENT: No sclera icterus. Extraocular movements grossly intact. Moist buccal mucosa. Head is atraumatic, normocephalic. Hears conversational speech. No nasal drainage. NECK: Supple without lymphadenopathy. CHEST: Non-labored respirations and equal bilateral excursions. CARDIOVASCULAR: Palpable 2+ radial pulses. ABDOMEN: Soft. Nontender. Mildly distended MUSCULOSKELETAL: No clubbing or cyanosis. NEUROLOGIC: No focal or lateralizing signs. Cranial nerves II through XII gr ossly intact. PSYCH: Appropriate affect. Alert and oriented to person, place and time. SKIN: Well perfused. Good skin turgor. LABORATORY DATA: WBC 9.1 hemoglobin 13.5 platelets 302 sodium 137 potassium 3.3 creatinine 0.61 glucose 108 phosphorus 1.3 AST 35 ALT 23 Urinalysis positive but may be contaminated due to her loose stools Stool for C. diff negative COVID-19 not detected IMAGING: Chest x-ray cardiomegaly. No active cardiopulmonary disease. Atheromatosis tortuous thoracic aorta. ASSESSMENT: 1. Diarrhea with nausea after taking antibiotic for UTI 2. 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 Hypertension 4. Diabetes mellitus type 2 5. Polymyalgia rheumatica 6. Hypokalemia and hypophosphatemia PLAN: -Follow-up on computed tomography scan of abdomen and pelvis with contrast -Further recommendations forthcoming per surgeon -Keep patient nothing by mouth for now -Repeat CMP and rhythm place electrolytes as needed -Continue IV fluids -Follow up on stool cultures Thank you for this consultation Physician Leather Case Finisher note has been reviewed by physician. Signing provider agrees with the documented findings, assessment, and plan of care. Past Medical History Past Medical History: Cancer, Hypertension Additional Past Medical History / Comment(s): PMR, c-diff, breast biopsy History of Any Multi-Drug Resistant Organisms: C-DIFF Year Discovered:: 10/28/20 MDRO Source:: stool Past Surgical History: Appendectomy, Breast Surgery Past Anesthesia/Blood Transfusion Reactions: No Reported Reaction Past Psychological History: No Psychological Hx Reported Smoking Status: Former smoker Past Alcohol Use History: Occasional Past Drug Use History: None Reported - Past Family History Father Family Medical History: Myocardial Infarction (VT) Additional Family Medical History / Comment(s): Father of a massive VT at the age of 62 yrs. Mother Family Medical History: Cancer Additional Family Medical History / Comment(s): Mother of breast cancer. Pt's maternal grandmother also had breast cancer as well as a maternal side aunt. Sister(s) Family Medical History: AFIB Medications and Allergies Home Medications Medication Instructions Recorded Confirmed Type Aspirin 81 mg PO DAILY 09/16/15 10/30/20 History Atorvastatin [Lipitor] 10 mg PO DAILY 09/16/15 10/30/20 History Calcium Carbonate [Calcium] 600 mg PO DAILY 09/16/15 10/30/20 History Potassium 99 mg PO DAILY 09/16/15 10/30/20 History ALPRAZolam [Xanax] 0.25 mg PO DAILY PRN 10/28/20 10/30/20 History Albuterol Inhaler [Ventolin Hfa 1 - 2 puff INHALATION RT-QID PRN 10/28/20 10/30/20 History Inhaler] Cholecalciferol [Vitamin D3 (25 50 mcg PO DAILY 10/28/20 10/30/20 History Mcg = 1000 Iu)] Dorzolamide/Timolol/Pf 1 drop BOTH EYES BID 10/28/20 10/30/20 History [Dorzolamide 2%-Timolol 0.5%] Fish Oil/Dha/Epa [Fish Oil 1,200 1 cap PO DAILY 10/28/20 10/30/20 History mg Fish Oil] Latanoprost/Pf [Latanoprost 0.005% 1 drop BOTH EYES HS 10/28/20 10/30/20 History Eye Drop] Loratadine [Claritin] 10 mg PO DAILY PRN 10/28/20 10/30/20 History Magnesium Oxide 400 mg PO DAILY 10/28/20 10/30/20 History Turmeric-Circumin 500mg 1 tab PO DAILY 10/28/20 10/30/20 History metFORMIN HCL ER [Glucophage Xr] 1,000 mg PO DAILY 10/28/20 10/30/20 History predniSONE See Taper PO DAILY 10/28/20 10/30/20 History Ciprofloxacin HCl [Cipro] 500 mg PO Q12HR #14 tablet 10/29/20 10/30/20 Rx Metoprolol Succinate (ER) [Toprol 50 mg PO DAILY #30 tab 10/29/20 10/30/20 Rx XL] metroNIDAZOLE [Flagyl] 500 mg PO TID #21 tab 10/29/20 10/30/20 Rx Allergies Allergy/AdvReac Type Severity Reaction Status Date / Time morphine Allergy Unknown Verified 10/30/20 06:50 Surgical - Exam Vital Signs Temp Pulse Resp BP Pulse Ox 99.3 F 91 16 158/81 94 L 10/29/20 23:04 10/29/20 23:04 10/29/20 23:04 10/29/20 23:04 10/29/20 23:04 Results - Labs 10/29/20 23:33 10/30/20 12:04 Abnormal Lab Results - Last 24 Hours (Table) 10/29/20 10/29/20 10/29/20 Range/Units 23:33 23:33 23:33 Neutrophils # 8.4 H (1.3-7.7) k/uL Lymphocytes # 0.3 L (1.0-4.8) k/uL Potassium 3.3 L (3.5-5.1) mmol/L Glucose 108 H (74-99) mg/dL Phosphorus 1.3 L (2.5-4.5) mg/dL Total Protein 5.8 L (6.3-8.2) g/dL Albumin 3.3 L (3.5-5.0) g/dL Urine Appearance Cloudy H (Clear) Urine Protein 1+ H (Negative) Urine Ketones 1+ H (Negative) Urine Blood Moderate H (Negative) Urine Nitrite Positive H (Negative) Ur Leukocyte Esterase Large H (Negative) Urine RBC 11 H (0-5) /hpf Urine WBC 127 H (0-5) /hpf Calcium Oxalate Crystal Many H (None) /hpf Urine Bacteria Moderate H (None) /hpf Urine Mucus Few H (None) /hpf Microbiology - Last 24 Hours (Table) 10/29/20 23:33 Urine Culture - Preliminary Urine,Voided 10/30/20 05:03 Stool Culture - Preliminary Stool Diabetes panel 10/29/20 Range/Units 23:33 Sodium 137 (137-145) mmol/L Potassium 3.3 L (3.5-5.1) mmol/L Chloride 105 (98-107) mmol/L Carbon Dioxide 28 (22-30) mmol/L BUN 17 (7-17) mg/dL Creatinine 0.61 (0.52-1.04) mg/dL Glucose 108 H (74-99) mg/dL Calcium 8.6 (8.4-10.2) mg/dL AST 35 (14-36) U/L ALT 23 (4-34) U/L Alkaline Phosphatase 51 (38-126) U/L Total Protein 5.8 L (6.3-8.2) g/dL Albumin 3.3 L (3.5-5.0) g/dL Thyroid panel 10/29/20 Range/Units 23:33 TSH 1.760 (0.465-4.680) mIU/L Calcium panel 10/29/20 Range/Units 23:33 Calcium 8.6 (8.4-10.2) mg/dL Phosphorus 1.3 L (2.5-4.5) mg/dL Albumin 3.3 L (3.5-5.0) g/dL Pituitary panel 10/29/20 Range/Units 23:33 Sodium 137 (137-145) mmol/L Potassium 3.3 L (3.5-5.1) mmol/L Chloride 105 (98-107) mmol/L Carbon Dioxide 28 (22-30) mmol/L BUN 17 (7-17) mg/dL Creatinine 0.61 (0.52-1.04) mg/dL Glucose 108 H (74-99) mg/dL Calcium 8.6 (8.4-10.2) mg/dL TSH 1.760 (0.465-4.680) mIU/L Adrenal panel 10/29/20 Range/Units 23:33 Sodium 137 (137-145) mmol/L Potassium 3.3 L (3.5-5.1) mmol/L Chloride 105 (98-107) mmol/L Carbon Dioxide 28 (22-30) mmol/L BUN 17 (7-17) mg/dL Creatinine 0.61 (0.52-1.04) mg/dL Glucose 108 H (74-99) mg/dL Calcium 8.6 (8.4-10.2) mg/dL Total Bilirubin 0.3 (0.2-1.3) mg/dL AST 35 (14-36) U/L ALT 23 (4-34) U/L Alkaline Phosphatase 51 (38-126) U/L Total Protein 5.8 L (6.3-8.2) g/dL Albumin 3.3 L (3.5-5.0) g/dL
[2020-10-30 12:26] LABS: ALT 23 U/L (4-34); AST 38 U/L (14-36); African American GFR (CKD) >90 (>60 ml/min/1.73 sqM); Albumin 2.9 g/dL (3.5-5.0); Albumin/Globulin Ratio 1.2; Alkaline Phosphatase 47 U/L (38-126); Anion Gap 2 mmol/L; Blood Urea Nitrogen 11 mg/dL (7-17); Calcium 8.1 mg/dL (8.4-10.2); Carbon Dioxide 29 mmol/L (22-30); Chloride 108 mmol/L (98-107); Globulin 2.4 g/dL; Glucose 92 mg/dL (74-99); Non-African American GFR(CKD) 87 (>60 ml/min/1.73 sqM); Sodium 139 mmol/L (137-145); Total Bilirubin 0.3 mg/dL (0.2-1.3); Total Protein 5.3 g/dL (6.3-8.2)
[2020-10-30] MEDS: LEVOFLOXACIN 500MG-D5W PMX 500 MG in DEXTROSE/WATER 1 100ML.BAG IVPB SCH (12:29)
[2020-10-30] MEDS: MAGNESIUM OXIDE 400 MG TAB PO SCH (12:35)
[2020-10-30] MEDS: POTASSIUM CHLORIDE ER 20 MEQ TAB.ER PO SCH ×2 (12:35→15:10)
[2020-10-30] MEDS: PANTOPRAZOLE 40 MG/10 ML VIAL IV SCH (12:37)
--- NOTE | 2020-10-30 14:08 | CT ---
EXAMINATION TYPE: CT abdomen pelvis w con DATE OF EXAM: 10/30/2020 COMPARISON: None INDICATION: Nausea, vomiting, diarrhea, failed outpatient treatment DLP: 997.9 mGycm, Automated exposure control for dose reduction was used. CONTRAST: 100 mL of Isovue 300. Study performed with Oral Contrast TECHNIQUE: Axial images were obtained from above the diaphragm to the pubic rami in the axial plane a t 5 mm thick sections. Reconstructed images are reviewed on the computer in the coronal plane. FINDINGS: Limited CT sections are obtained the lung bases. The lung bases are clear. CT ABDOMEN: Liver: Normal Spleen: Normal Pancreas: Normal Adrenal glands: The adrenal glands are normal. Gallbladder: Normal Kidneys: No masses are evident. No hydronephrosis is present. Multiple cortical renal cysts are pre sent in the bilateral kidneys. Delayed images were obtained through the kidneys. Aorta: Vascular calcification is within the aorta. Inferior vena cava: Normal. CT PELVIS: Diverticular changes are within the sigmoid colon. No adjacent inflammatory change is evident. Some m ild wall thickening may be present. Consider mild colitis. No acute diverticulitis is otherwise ident ified. Inguinal hernias are present. There is a nondilated loop of small bowel in the right inguinal hernia. There are loops of bowel which are incompletely distended or lack oral contrast limiting thei r evaluation. Appendix: Not identified. No dilated tubular structure or inflammatory changes are evident. Urinary bladder: Normal. Genitourinary structures: Uterus is not identified. Adnexal regions appear clear. Osseous structures: No suspicious lytic or sclerotic lesions. IMPRESSIONS: 1. Multiple diverticuli throughout the sigmoid colon. There is some wall thickening. Correlate for m ild colitis. Acute diverticulitis is not otherwise evident. 2. Multiple bilateral renal cysts
--- NOTE | 2020-10-30 14:28 | P.HPIM ---
History of Present Illness H&P Date: 10/30/20 HISTORY OF PRESENT ILLNESS This is an 80-year-old female patient of Dr. Ngo with past medical history of hypertension, hyperlipidemia, diabetes mellitus type 2, glaucoma, generalized anxiety disorder, polymyalgia rheumatica, remote history of tobacco use. Patient gives history that she was treated for urinary tract infection although she did not have any symptoms and completed a three-day course of antibiotics. She then had many diarrhea for 1 day. She states she went for 5 times daily Lomotil which seemed to help. She came into the emergency room yesterday. She was afebrile, heart rate 93, blood pressure 129/70, pulse ox 95% on room air. WBC 11.4, hemoglobin 15, platelet count 375. Electrolytes normal. BUN 23 creatinine 0.59. Blood sugar 122. Liver function tests were normal. Coronavirus PCR not detected. EKG was sinus rhythm with no acute ST changes. Patient was placed in the observation unit. She had 2 bowel movements this morning. One was formed and the second was loose. The second specimen was sent for C. difficile toxin came back negative. Patient denies having any abdominal pain, no cramping. She denies having any fever or chills. Patient was provided a prescription for Flagyl and Levaquin and discharged home yesterday. Patient return to the emergency center last evening with nausea vomiting and diarrhea. She was afebrile, heart rate 91, blood pressure 158/81, pulse ox 94% on room air. CBC was normal. Electrolytes and renal function were all normal except for potassium of 3.3. Blood sugar 108. Urinalysis was cloudy, blood moderate, nitrate positive, leukoesterase large, WBC 127, bacteria moderate, crystals many. Lactic acid 0.9. Patient was diagnosed with dehydration and gastroenteritis in placed in the observation unit. Patient was started on IV fluids, Levaquin and Flagyl for possible colitis. REVIEW OF SYSTEMS Constitutional: No fever, no chills, no night sweats. No weight change. No weakness, fatigue or lethargy. No daytime sleepiness. EENT: No headache. No blurred vision or double vision, no loss of vision. No loss of Hearing, no ringing in the ears, no dizziness. No nasal drainage or congestion. No epistaxis. No sore throat. Lungs: No shortness of breath, cough, no sputum production. No wheezing. Cardiovascular: No chest pain, no lower extremity edema. No palpitations. No paroxysmal nocturnal dyspnea. No orthopnea. No lightheadedness or dizziness. No syncopal episodes. Abdominal: Reports abdominal pain. Reports nausea, vomiting. Reports diarrhea. No constipation. No bloody or tarry stools.. No loss of appetite. Genitourinary: No dysuria, increased frequency, urgency. No urinary retention. Musculoskeletal: No myalgias. No muscle weakness, no gait dysfunction, no frequent falls. No back pain. No neck pain. Integumentary: No wounds, no lesions. No rash or pruritus. No unusual bruising. No change in hair or nails. Neurologic: No aphasia. No facial droop. No change in mentation. No head injury. No headache. No paralysis. No paresthesia. Psychiatric: No depression. No anxiety. No mood swings. Endocrine: No abnormal blood sugars. No weight change. No excessive sweating or thirst. No cold intolerance. SOCIAL HISTORY Patient has a history of smoking. She quit many years ago. She drinks occasional glass of wine. She lives at home and is a . FAMILY HISTORY Mother from breast cancer at the age of 73, history of breast cancer in her maternal grandmother and maternal aunt. Father from a massive myocardial infarction. Patient has one sister with history of atrial fibrillation and one daughter with diabetes. PHYSICAL EXAMINATION Gen: This is an 80-year-old female. She is resting in bed and appears to be comfortable and in no acute distress. HEENT: Head is atraumatic, normocephalic. Pupils equal, round. Sclerae is anicteric. NECK: Supple. No JVD. No lymphadenopathy. No thyromegaly. LUNGS: Clear to auscultation. No wheezes or rhonchi. No intercostal retractions. HEART: Regular rate and rhythm. No murmur. ABDOMEN: Soft. Bowel sounds are present. No masses. No tenderness. EXTREMITIES: No pedal edema. No calf tenderness. NEUROLOGICAL: Patient is awake, alert and oriented x3. Cranial nerves 2 through 12 are grossly intact. ASSESSMENT AND PLAN 1. Diarrhea secondary to colitis, C. difficile colitis ruled out. Stool culture ordered. Continue patient on Levaquin and Flagyl, Questran twice daily. CAT scan of the abdomen and pelvis with contrast ordered. 2. Acute urinary tract infection with recent completion of antibiotics with Keflex. Patient started on Levaquin. Urine culture in progress. 3. Hypertension. Patient was on the hypotensive side and lisinopril and h ydrochlorothiazide discontinued until patient follows up with her physician. Also Toprol-XL decreased from 100 mg daily to 50 mg daily. 4. Hyperlipidemia. Continue Lipitor 10 mg daily 5. Diabetes mellitus type 2. Hold metformin. Start patient on NovoLog scale before meals and at bedtime 6. Glaucoma. Continue eyedrops. 7. Generalized anxiety disorder. Continue Xanax or 0.25 mg daily as needed. 8. Polymyalgia rheumatica. Continue prednisone 3 mg daily. 9. Remote history of tobacco use. 10. GI prophylaxis. Protonix 40 mg IV daily. 11. DVT prophylaxis. Heparin subcu Patient placed as an observation status. DISCHARGE PLAN Home Impression and plan of care have been directed as dictated by the signing physician. Brook Chapin nurse practitioner acting as scribe for signing physician. Past Medical History Past Medical History: Cancer, Hypertension Additional Past Medical History / Comment(s): PMR, c-diff, breast biopsy History of Any Multi-Drug Resistant Organisms: C-DIFF Date of last positivie culture/infection: 10/28/20 MDRO Source:: stool Past Surgical History: Appendectomy, Breast Surgery Past Anesthesia/Blood Transfusion Reactions: No Reported Reaction Past Psychological History: No Psychological Hx Reported Smoking Status: Former smoker Past Alcohol Use History: Occasional Past Drug Use History: None Reported - Past Family History Father Family Medical History: Myocardial Infarction ([place]) Additional Family Medical History / Comment(s): Father of a massive [place] at the age of 62 yrs. Mother Family Medical History: Cancer Additional Family Medical History / Comment(s): Mother of breast cancer. Pt's maternal grandmother also had breast cancer as well as a maternal side aunt. Sister(s) Family Medical History: AFIB Medications and Allergies Home Medications Medication Instructions Recorded Confirmed Type Aspirin 81 mg PO DAILY 09/16/15 10/30/20 History Atorvastatin [Lipitor] 10 mg PO DAILY 09/16/15 10/30/20 History Calcium Carbonate [Calcium] 600 mg PO DAILY 09/16/15 10/30/20 History Potassium 99 mg PO DAILY 09/16/15 10/30/20 History ALPRAZolam [Xanax] 0.25 mg PO DAILY PRN 10/28/20 10/30/20 History Albuterol Inhaler [Ventolin Hfa 1 - 2 puff INHALATION RT-QID PRN 10/28/20 10/30/20 History Inhaler] Cholecalciferol [Vitamin D3 (25 50 mcg PO DAILY 10/28/20 10/30/20 History Mcg = 1000 Iu)] Dorzolamide/Timolol/Pf 1 drop BOTH EYES BID 10/28/20 10/30/20 History [Dorzolamide 2%-Timolol 0.5%] Fish Oil/Dha/Epa [Fish Oil 1,200 1 cap PO DAILY 10/28/20 10/30/20 History mg Fish Oil] Latanoprost/Pf [Latanoprost 0.005% 1 drop BOTH EYES HS 10/28/20 10/30/20 History Eye Drop] Loratadine [Claritin] 10 mg PO DAILY PRN 10/28/20 10/30/20 History Magnesium Oxide 400 mg PO DAILY 10/28/20 10/30/20 History Turmeric-Circumin 500mg 1 tab PO DAILY 10/28/20 10/30/20 History metFORMIN HCL ER [Glucophage Xr] 1,000 mg PO DAILY 10/28/20 10/30/20 History predniSONE See Taper PO DAILY 10/28/20 10/30/20 History Ciprofloxacin HCl [Cipro] 500 mg PO Q12HR #14 tablet 10/29/20 10/30/20 Rx Metoprolol Succinate (ER) [Toprol 50 mg PO DAILY #30 tab 10/29/20 10/30/20 Rx XL] metroNIDAZOLE [Flagyl] 500 mg PO TID #21 tab 10/29/20 10/30/20 Rx Allergies Allergy/AdvReac Type Severity Reaction Status Date / Time morphine Allergy Unknown Verified 10/30/20 06:50 Physical Exam Vitals: Vital Signs Temp Pulse Resp BP Pulse Ox 10/30/20 05:59 81 14 140/84 94 L 10/30/20 05:00 87 20 136/86 94 L 10/30/20 03:56 82 14 127/78 92 L 10/30/20 03:01 85 18 135/79 95 10/29/20 23:04 99.3 F 91 16 158/81 94 L Intake and Output 10/29/20 10/30/20 10/30/20 22:59 06:59 14:59 Other: Weight 66.678 kg Results CBC & Chem 7: 10/29/20 23:33 10/30/20 12:04 Labs: Abnormal Lab Results - Last 24 Hours (Table) 10/29/20 10/29/20 10/29/20 Range/Units 23:33 23:33 23:33 Neutrophils # 8.4 H (1.3-7.7) k/uL Lymphocytes # 0.3 L (1.0-4.8) k/uL Potassium 3.3 L (3.5-5.1) mmol/L Glucose 108 H (74-99) mg/dL Phosphorus 1.3 L (2.5-4.5) mg/dL Total Protein 5.8 L (6.3-8.2) g/dL Albumin 3.3 L (3.5-5.0) g/dL Urine Appearance Cloudy H (Clear) Urine Protein 1+ H (Negative) Urine Ketones 1+ H (Negative) Urine Blood Moderate H (Negative) Urine Nitrite Positive H (Negative) Ur Leukocyte Esterase Large H (Negative) Urine RBC 11 H (0-5) /hpf Urine WBC 127 H (0-5) /hpf Calcium Oxalate Crystal Many H (None) /hpf Urine Bacteria Moderate H (None) /hpf Urine Mucus Few H (None) /hpf
[2020-10-30] MEDS ORDERED: Phosphorus Replacement Protoco 1 EACH MISC MISCELLANE PRN (15:34)
[2020-10-30] MEDS ORDERED: POTASSIUM CHLORIDE ER 20 MEQ TAB.ER PO SCH (16:00)
[2020-10-30 17:06] LABS: Appearance,Urine Clear (Clear); Bacteria,Urine Rare /hpf; Bilirubin,Urine Negative (Negative); Blood,Urine Small (Negative); Color,Urine Light Yellow; Glucose,Urine (UA) Negative (Negative); Ketones,Urine Trace (Negative); Leukocyte Esterase,Urine Large (Negative); Nitrite,Urine Negative (Negative); Protein,Urine Negative (Negative); RBC,Urine 12 /hpf (0-5); Specific Gravity,Urine 1.028 (1.001-1.035); Squamous Epithelial Cell,Urine <1 /hpf (0-4); Urobilinogen,Urine <2.0 mg/dL (<2.0); WBC,Urine 64 /hpf (0-5)
[2020-10-30] MEDS: POTASSIUM PHOSPHATE 10 MMOL in SODIUM CHLORIDE 0.9% 250 ML IV SCH ×3 (17:41→23:40)
[2020-10-30] MEDS: INSULIN ASPART (NovoLOG) 100 UNIT/ML VIAL SQ SCH ×2 (17:46→23:36)
[2020-10-30] MEDS: CHOLESTYRAMINE (WITH SUGAR) 4 GM PACKET PO SCH (20:02)
[2020-10-30] MEDS: DORZOLAMIDE-TIMOLOL 2.23%/0.68 10ML BTL BOTH EYES SCH (20:03)
[2020-10-30] MEDS: LATANOPROST 0.005% OPHTH DROPS 2.5 ML BTL BOTH EYES SCH (20:03)
[2020-10-30 20:25] LABS: Glucose,Whole Blood 88 mg/dL (75-99)
[2020-10-30] MEDS: metroNIDAZOLE-NS PMX 500 MG in SALINE 1 100ML.BAG IVPB SCH (23:40)
[2020-10-31] MEDS: DEXTROSE 5%-0.45% NACL 1,000 ML IV SCH ×4 (05:24→19:54)
[2020-10-31] MEDS: metroNIDAZOLE-NS PMX 500 MG in SALINE 1 100ML.BAG IVPB SCH ×3 (06:04→23:41)
[2020-10-31 07:42] LABS: Glucose,Whole Blood 77 mg/dL (75-99)
[2020-10-31] MEDS: PANTOPRAZOLE 40 MG/10 ML VIAL IV SCH (08:57)
[2020-10-31] MEDS: ATORVASTATIN 10 MG TAB PO SCH (08:57)
[2020-10-31] MEDS: METOPROLOL SUCCINATE (ER) 50 MG TAB.ER.24H PO SCH (08:57)
[2020-10-31] MEDS: ASPIRIN 81 MG PO SCH (08:58)
[2020-10-31] MEDS: MAGNESIUM OXIDE 400 MG TAB PO SCH (08:58)
[2020-10-31] MEDS: predniSONE 1 MG TAB PO SCH (08:58)
[2020-10-31] MEDS: DORZOLAMIDE-TIMOLOL 2.23%/0.68 10ML BTL BOTH EYES SCH ×2 (08:59→21:32)
[2020-10-31] MEDS: INSULIN ASPART (NovoLOG) 100 UNIT/ML VIAL SQ SCH ×4 (08:59→21:42)
[2020-10-31] MEDS: LEVOFLOXACIN 500MG-D5W PMX 500 MG in DEXTROSE/WATER 1 100ML.BAG IVPB SCH (09:00)
[2020-10-31 09:10] LABS: Basophils # (A) 0.01 X 10*3/uL (0.00-0.10); Basophils % (A) 0.2 %; Eosinophils # (A) 0.03 X 10*3/uL (0.04-0.35); Eosinophils % (A) 0.7 %; HCT 38.4 % (37.2-46.3); HGB 12.2 g/dL (12.0-15.0); Lymphocytes # (A) 0.88 X 10*3/uL (0.90-5.00); Lymphocytes % (A) 19.3 %; MCH 30.3 pg (27.0-32.0); MCHC 31.8 g/dL (32.0-37.0); MCV 95.5 fL (80.0-97.0); Mean Platelet Volume 10.6 fL (9.5-12.2); Monocytes # (A) 0.66 X 10*3/uL (0.20-1.00); Monocytes % (A) 14.5 %; Neutrophils # (A) 2.97 X 10*3/uL (1.80-7.70); Neutrophils % (A) 65.1 %; Platelet Count 292 X 10*3/uL (140-440); RBC 4.02 X 10*6/uL (4.10-5.20); RDW 14.9 % (11.5-14.5); WBC 4.56 X 10*3/uL (4.50-10.00)
[2020-10-31 09:41] LABS: African American GFR (CKD) 104.5 (60.0-200.0); Anion Gap 5.5 mmol/L (4.00-12.00); Calcium 7.8 mg/dL (8.7-10.3); Carbon Dioxide 24.5 mmol/L (21.6-31.8); Magnesium 1.7 mg/dL (1.5-2.4); Non-African American GFR(CKD) 90.1 (60.0-200.0); Phosphorus 2.4 mg/dL (2.4-5.1)
--- NOTE | 2020-10-31 11:08 | P.PN ---
Subjective Progress Note Date: 10/31/20 HISTORY OF PRESENT ILLNESS This is an 80-year-old female patient of Dr. Ngo with past medical history of hypertension, hyperlipidemia, diabetes mellitus type 2, glaucoma, generalized anxiety disorder, polymyalgia rheumatica, remote history of tobacco use. Patient gives history that she was treated for urinary tract infection although she did not have any symptoms and completed a three-day course of antibiotics. She then had many diarrhea for 1 day. She states she went for 5 times daily Lomotil which seemed to help. She came into the emergency room yesterday. She was afebrile, heart rate 93, blood pressure 129/70, pulse ox 95% on room air. WBC 11.4, hemoglobin 15, platelet count 375. Electrolytes normal. BUN 23 creatinine 0.59. Blood sugar 122. Liver function tests were normal. Coronavirus PCR not detected. EKG was sinus rhythm with no acute ST changes. Patient was placed in the observation unit. She had 2 bowel movements this morning. One was formed and the second was loose. The second specimen was sent for C. difficile toxin came back negative. Patient denies having any abdominal pain, no cramping. She denies having any fever or chills. Patient was provided a prescription for Flagyl and Levaquin and discharged home yesterday. Patient return to the emergency center last evening with nausea vomiting and diarrhea. She was afebrile, heart rate 91, blood pressure 158/81, pulse ox 94% on room air. CBC was normal. Electrolytes and renal function were all normal except for potassium of 3.3. Blood sugar 108. Urinalysis was cloudy, blood moderate, nitrate positive, leukoesterase large, WBC 127, bacteria moderate, crystals many. Lactic acid 0.9. Patient was diagnosed with dehydration and gastroenteritis in placed in the observation unit. Patient was started on IV fluids, Levaquin and Flagyl for possible colitis. 10/31: Patient is seen today in follow-up. CAT scan of the abdomen and pelvis with contrast revealed multiple diverticuli throughout the sigmoid colon. Some wall thickening. Correlate for mild colitis. Acute diverticulitis is not otherwise evident. Multiple bilateral renal cysts. Patient had a small semi- formed stool this morning. She denies nausea or vomiting. She denies fever or chills. She has been afebrile, heart rate 62, blood pressure 134/78, pulse ox 92% on room air. Repeat blood work reveals WBC is 4.5, hemoglobin 12.2, platelet count 292. Sodium 142, potassium 4.0, chloride 112, CO2 24.5, BUN 6 and creatinine 0.5. Blood sugar 86. Magnesium 1.7. Patient will be advanced to low fiber diet. Stool culture is in process. Urine culture is in progress. Patient will be continued on IV antibiotics for another day and probable discharge home tomorrow. REVIEW OF SYSTEMS Constitutional: No fever, no chills, no night sweats. No weight change. No weakness, fatigue or lethargy. No daytime sleepiness. EENT: No headache. No blurred vision or double vision, no loss of vision. No loss of Hearing, no ringing in the ears, no dizziness. No nasal drainage or congestion. No epistaxis. No sore throat. Lungs: No shortness of breath, cough, no sputum production. No wheezing. Cardiovascular: No chest pain, no lower extremity edema. No palpitations. No paroxysmal nocturnal dyspnea. No orthopnea. No lightheadedness or dizziness. No syncopal episodes. Abdominal: Reports abdominal pain. Denies nausea, vomiting. No diarrhea. No constipation. No bloody or tarry stools.. No loss of appetite. Genitourinary: No dysuria, increased frequency, urgency. No urinary retention. Musculoskeletal: No myalgias. No muscle weakness, no gait dysfunction, no frequent falls. No back pain. No neck pain. Integumentary: No wounds, no lesions. No rash or pruritus. No unusual bruising. No change in hair or nails. Neurologic: No aphasia. No facial droop. No change in mentation. No head injury. No headache. No paralysis. No paresthesia. Psychiatric: No depression. No anxiety. No mood swings. Endocrine: No abnormal blood sugars. No weight change. No excessive sweating or thirst. No cold intolerance. PHYSICAL EXAMINATION Gen: This is an 80-year-old female. She is resting in bed and appears to be comfortable and in no acute distress. HEENT: Head is atraumatic, normocephalic. Pupils equal, round. Sclerae is anicteric. NECK: Supple. No JVD. No lymphadenopathy. No thyromegaly. LUNGS: Clear to auscultation. No wheezes or rhonchi. No intercostal retractions. HEART: Regular rate and rhythm. No murmur. ABDOMEN: Soft. Bowel sounds are present. No masses. No tenderness. EXTREMITIES: No pedal edema. No calf tenderness. NEUROLOGICAL: Patient is awake, alert and oriented x3. Cranial nerves 2 through 12 are grossly intact. ASSESSMENT AND PLAN 1. Diarrhea secondary to colitis, C. difficile colitis ruled out. Stool culture ordered. Continue patient on Levaquin and Flagyl, Questran twice daily. CAT scan of the abdomen and pelvis with contrast as above. General surgery on consult.. 2. Acute urinary tract infection with recent completion of antibiotics with Keflex. Patient started on Levaquin. Urine culture in progress. Blood culture is in progress. 3. Hypertension. Patient was on the hypotensive side and lisinopril and hydrochlorothiazide discontinued until patient follows up with her physician. Also Toprol-XL decreased from 100 mg daily to 50 mg daily. 4. Hyperlipidemia. Continue Lipitor 10 mg daily 5. Diabetes mellitus type 2. Hold metformin. Start patient on NovoLog scale before meals and at bedtime 6. Glaucoma. Continue eyedrops. 7. Generalized anxiety disorder. Continue Xanax or 0.25 mg daily as needed. 8. Polymyalgia rheumatica. Continue prednisone 3 mg daily. 9. Remote history of tobacco use. 10. GI prophylaxis. Protonix 40 mg IV daily. 11. DVT prophylaxis. Heparin subcu DISCHARGE PLAN Home Impression and plan of care have been directed as dictated by the signing physician. Brook Chapin nurse practitioner acting as scribe for signing physician. Objective - Vital Signs Vital signs: Vital Signs Temp 98.3 F 10/31/20 07:00 Pulse 62 10/31/20 07:00 Resp 18 10/31/20 07:00 BP 134/78 10/31/20 07:00 Pulse Ox 92 L 10/31/20 07:00 Intake & Output 10/30/20 10/31/20 10/31/20 18:59 06:59 18:59 Intake Total 800 Output Total 200 1100 Balance 600 -1100 Weight 66.678 kg Intake: IV 800 Dextrose 5%-0.45% NaCl 1, 600 000 ml @ 100 mls/hr IV . Q10H [facility] Rx#:[id number] Levofloxacin 500Mg-D5w 100 Pmx 500 mg In Dextrose/ Water 1 100ml.bag @ 100 mls/hr IVPB Q24HR [facility] Rx# :[id number] metroNIDAZOLE-NS PMX 500 100 mg In Saline 1 100ml.bag @ 100 mls/hr IVPB Q8H [facility] Rx#:[id number] Output: Urine 200 1100 Other: Voiding Method Toilet Toilet # Voids 1 3 # Bowel Movements 1 1 - Labs CBC & Chem 7: 10/31/20 04:28 10/31/20 04:28 Labs: Abnormal Lab Results - Last 24 Hours (Table) 10/30/20 10/30/20 10/30/20 Range/Units 05:03 12:04 12:04 Potassium 3.0 L (3.5-5.1) mmol/L Chloride 108 H (98-107) mmol/L Calcium 8.1 L (8.4-10.2) mg/dL Phosphorus 1.3 L (2.5-4.5) mg/dL AST 38 H (14-36) U/L Total Protein 5.3 L (6.3-8.2) g/dL Albumin 2.9 L (3.5-5.0) g/dL Urine Ketones (Negative) Urine Blood (Negative) Ur Leukocyte Esterase (Negative) Urine RBC (0-5) /hpf Urine WBC (0-5) /hpf Urine Bacteria (None) /hpf Stool Lactoferrin POSITIVE A (NEGATIVE) 10/30/20 Range/Units 16:43 Potassium (3.5-5.1) mmol/L Chloride (98-107) mmol/L Calcium (8.4-10.2) mg/dL Phosphorus (2.5-4.5) mg/dL AST (14-36) U/L Total Protein (6.3-8.2) g/dL Albumin (3.5-5.0) g/dL Urine Ketones Trace H (Negative) Urine Blood Small H (Negative) Ur Leukocyte Esterase Large H (Negative) Urine RBC 12 H (0-5) /hpf Urine WBC 64 H (0-5) /hpf Urine Bacteria Rare H (None) /hpf Stool Lactoferrin (NEGATIVE) Microbiology - Last 24 Hours (Table) 10/29/20 23:33 Urine Culture - Preliminary Urine,Voided 10/30/20 05:03 Stool Culture - Preliminary Stool
[2020-10-31] MEDS: ALBUTEROL HFA INHALER INHALATION PRN ×2 (11:17→20:07)
[2020-10-31 12:05] LABS: Glucose,Whole Blood 93 mg/dL (75-99)
[2020-10-31] MEDS: CHOLESTYRAMINE (WITH SUGAR) 4 GM PACKET PO SCH ×2 (13:55→22:03)
--- NOTE | 2020-10-31 14:10 | P.PN ---
Subjective Progress Note Date: 10/31/20 CHIEF COMPLAINT: Diarrhea HISTORY OF PRESENT ILLNESS: Patient admitted to the hospital with diarrhea and nausea. She had a computed tomography scan of the abdomen and pelvis with contrast that showed evidence of colitis. Some wall thickening. Multiple diverticuli throughout the sigmoid colon. Inguinal hernias are present. There is a nondilated loop of small bowel in the right inguinal hernia. Patient reports that her diarrhea has improved. She was started on antibiotics by medicine service. The stools are becoming more formed and she only had 1 bowel movement through the night. Her abdominal bloating is also improving. She denies any abdominal pain. Denies any nausea or vomiting. She is tolerating a clear liquid diet. Afebrile. WBC is 4.56 hemoglobin 12.2 platelets are 292 sodium 142 potassium 4 creatinine 0.5 phosphorus 2.4 magnesium 1.7 lipase 24 stool for C. diff negative. Patient anticipating discharge home tomorrow PHYSICAL EXAM: VITAL SIGNS: Reviewed GENERAL: Well-developed in no acute distress. HEENT: No sclera icterus. Extraocular movements grossly intact. Moist buccal mucosa. Head is atraumatic, normocephalic. Hears conversational speech. No nasal drainage. NECK: Supple without lymphadenopathy. CHEST: Non-labored respirations and equal bilateral excursions. CARDIOVASCULAR: Palpable 2+ radial pulses. ABDOMEN: Soft. Mildly distended. Nontender. MUSCULOSKELETAL: No clubbing or cyanosis. NEUROLOGIC: No focal or lateralizing signs. Cranial nerves II through XII grossly intact. PSYCH: Appropriate affect. Alert and oriented to person, place and time. SKIN: Well perfused. Good skin turgor. ASSESSMENT: 1. Colitis causing patient's diarrhea. Now improving. 2. Inguinal hernias. There is a nondilated loop of small bowel in the right in guinal hernia noted on CAT scan 3. 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 Hypertension 5. Diabetes mellitus type 2 6. Polymyalgia rheumatica 7. Hypokalemia and hypophosphatemia has been corrected PLAN: -Continue antibiotics for colitis -Agree with advancing diet to low fiber -Encouraged patient to increase activity level -Further recommendations forthcoming per surgeon in regards to patient's inguinal hernias Physician Concrete Worker note has been reviewed by physician. Signing provider agrees with the documented findings, assessment, and plan of care. Objective - Vital Signs Vital signs: Vital Signs Temp 98.3 F 10/31/20 07:00 Pulse 62 10/31/20 07:00 Resp 18 10/31/20 07:00 BP 134/78 10/31/20 07:00 Pulse Ox 92 L 10/31/20 07:00 Intake & Output 10/30/20 10/31/20 10/31/20 18:59 06:59 18:59 Intake Total 800 200 Output Total 200 1100 Balance 600 -1100 200 Weight 66.678 kg Intake: IV 800 Dextrose 5%-0.45% NaCl 1, 600 000 ml @ 100 mls/hr IV . Q10H [facility] Rx#:[id number] Levofloxacin 500Mg-D5w 100 Pmx 500 mg In Dextrose/ Water 1 100ml.bag @ 100 mls/hr IVPB Q24HR [facility] Rx# :[id number] metroNIDAZOLE-NS PMX 500 100 mg In Saline 1 100ml.bag @ 100 mls/hr IVPB Q8H [facility] Rx#:[id number] Oral 200 Output: Urine 200 1100 Other: Voiding Method Toilet Toilet Toilet # Voids 1 3 # Bowel Movements 1 1 - Labs CBC & Chem 7: 10/31/20 04:28 10/31/20 04:28 Labs: Abnormal Lab Results - Last 24 Hours (Table) 10/30/20 10/30/20 10/30/20 Range/Units 05:03 12:04 16:43 RBC (4.10-5.20) X 10*6/uL MCHC (32.0-37.0) g/dL RDW (11.5-14.5) % Lymphocytes # (0.90-5.00) X 10*3/uL Eosinophils # (0.04-0.35) X 10*3/uL Chloride (96-109) mmol/L BUN (9.0-27.0) mg/dL Creatinine (0.6-1.5) mg/dL Calcium (8.7-10.3) mg/dL Phosphorus 1.3 L (2.5-4.5) mg/dL Urine Ketones Trace H (Negative) Urine Blood Small H (Negative) Ur Leukocyte Esterase Large H (Negative) Urine RBC 12 H (0-5) /hpf Urine WBC 64 H (0-5) /hpf Urine Bacteria Rare H (None) /hpf Stool Lactoferrin POSITIVE A (NEGATIVE) 10/31/20 10/31/20 Range/Units 04:28 04:28 RBC 4.02 L (4.10-5.20) X 10*6/uL MCHC 31.8 L (32.0-37.0) g/dL RDW 14.9 H (11.5-14.5) % Lymphocytes # 0.88 L (0.90-5.00) X 10*3/uL Eosinophils # 0.03 L (0.04-0.35) X 10*3/uL Chloride 112 H (96-109) mmol/L BUN 6.0 L (9.0-27.0) mg/dL Creatinine 0.5 L (0.6-1.5) mg/dL Calcium 7.8 L (8.7-10.3) mg/dL Phosphorus (2.5-4.5) mg/dL Urine Ketones (Negative) Urine Blood (Negative) Ur Leukocyte Esterase (Negative) Urine RBC (0-5) /hpf Urine WBC (0-5) /hpf Urine Bacteria (None) /hpf Stool Lactoferrin (NEGATIVE) Microbiology - Last 24 Hours (Table) 10/29/20 23:33 Urine Culture - Preliminary Urine,Voided 10/30/20 05:03 Stool Culture - Preliminary Stool
[2020-10-31 15:23] VITALS: BMI 28.7
[2020-10-31 17:42] LABS: Glucose,Whole Blood 100 mg/dL (75-99)
--- NOTE | 2020-10-31 18:45 | P.PN ---
Progress Note - Text Progress Note Date: 10/31/20 Extensive discussion performed the patient and daughter at bedside. CT of the abdomen and pelvis imaging reviewed in detail including findings of bilateral inguinal hernias, umbilical hernia, diverticulosis, very mild colitis. Recommend patient follow up as outpatient regarding bilateral inguinal hernia repair. All questions were addressed. Patient and daughter were placed at the level of care. Patient clear for discharge from a surgical standpoint
[2020-10-31 20:31] LABS: Glucose,Whole Blood 132 mg/dL (75-99)
[2020-10-31 21:11] VITALS: PULSE 67
[2020-10-31] MEDS: LATANOPROST 0.005% OPHTH DROPS 2.5 ML BTL BOTH EYES SCH (21:32)
[2020-11-01] MEDS: DEXTROSE 5%-0.45% NACL 1,000 ML IV SCH (05:30)
[2020-11-01] MEDS: metroNIDAZOLE-NS PMX 500 MG in SALINE 1 100ML.BAG IVPB SCH (06:24)
[2020-11-01 07:16] LABS: Glucose,Whole Blood 90 mg/dL (75-99)
[2020-11-01] MEDS: INSULIN ASPART (NovoLOG) 100 UNIT/ML VIAL SQ SCH (07:24)
[2020-11-01] MEDS ORDERED: PANTOPRAZOLE 40 MG TABLET PO SCH (07:30)
[2020-11-01] MEDS: ALBUTEROL HFA INHALER INHALATION PRN (07:43)
[2020-11-01 08:03] VITALS: BP 146/86; RESP 18; TEMP 98.4
[2020-11-01] MEDS: ATORVASTATIN 10 MG TAB PO SCH (09:17)
[2020-11-01] MEDS: MAGNESIUM OXIDE 400 MG TAB PO SCH (09:17)
[2020-11-01] MEDS: ASPIRIN 81 MG PO SCH (09:17)
[2020-11-01] MEDS: METOPROLOL SUCCINATE (ER) 50 MG TAB.ER.24H PO SCH (09:18)
[2020-11-01] MEDS: DORZOLAMIDE-TIMOLOL 2.23%/0.68 10ML BTL BOTH EYES SCH (09:18)
[2020-11-01] MEDS: predniSONE 1 MG TAB PO SCH (09:19)
[2020-11-01] MEDS: CHOLESTYRAMINE (WITH SUGAR) 4 GM PACKET PO SCH (09:20)
[2020-11-01] MEDS: LEVOFLOXACIN 500MG-D5W PMX 500 MG in DEXTROSE/WATER 1 100ML.BAG IVPB SCH (09:23)
--- NOTE | 2020-11-01 12:50 | P.DS ---
Providers Date of admission: 10/30/20 00:21 Expected date of discharge: 11/01/20 Attending physician: Michelle Caal MD Consults: 10/30/20 00:23 Consult Physician Routine Consulting Provider: Sarah Sanders Consult Reason/Comments: known Do you want consulting provider notified?: Yes Primary care physician: Los Ngo [facility] Course: HISTORY OF PRESENT ILLNESS This is an 80-year-old female patient of Dr. Ngo with past medical history of hypertension, hyperlipidemia, diabetes mellitus type 2, glaucoma, generalized anxiety disorder, polymyalgia rheumatica, remote history of tobacco use. Patient gives history that she was treated for urinary tract infection although she did not have any symptoms and completed a three-day course of antibiotics. She then had many diarrhea for 1 day. She states she went for 5 times daily Lomotil which seemed to help. She came into the emergency room yesterday. She was afebrile, heart rate 93, blood pressure 129/70, pulse ox 95% on room air. WBC 11.4, hemoglobin 15, platelet count 375. Electrolytes normal. BUN 23 creatinine 0.59. Blood sugar 122. Liver function tests were normal. Coronavirus PCR not detected. EKG was sinus rhythm with no acute ST changes. Patient was placed in the observation unit. She had 2 bowel movements this morning. One was formed and the second was loose. The second specimen was sent for C. difficile toxin came back negative. Patient denies having any abdominal pain, no cramping. She denies having any fever or chills. Patient was provided a prescription for Flagyl and Levaquin and discharged home yesterday. Patient return to the emergency center last evening with nausea vomiting and diarrhea. She was afebrile, heart rate 91, blood pressure 158/81, pulse ox 94% on room air. CBC was normal. Electrolytes and renal function were all normal except for potassium of 3.3. Blood sugar 108. Urinalysis was cloudy, blood moderate, nitrate positive, leukoesterase large, WBC 127, bacteria moderate, crystals many. Lactic acid 0.9. Patient was diagnosed with dehydration and gastroenteritis in placed in the observation unit. Patient was started on IV fluids, Levaquin and Flagyl for possible colitis. 10/31: Patient is seen today in follow-up. CAT scan of the abdomen and pelvis with contrast revealed multiple diverticuli throughout the sigmoid colon. Some wall thickening. Correlate for mild colitis. Acute diverticulitis is not otherwise evident. Multiple bilateral renal cysts. Patient had a small semi- formed stool this morning. She denies nausea or vomiting. She denies fever or chills. She has been afebrile, heart rate 62, blood pressure 134/78, pulse ox 92% on room air. Repeat blood work reveals WBC is 4.5, hemoglobin 12.2, jennie telet count 292. Sodium 142, potassium 4.0, chloride 112, CO2 24.5, BUN 6 and creatinine 0.5. Blood sugar 86. Magnesium 1.7. Patient will be advanced to low fiber diet. Stool culture is in process. Urine culture is in progress. Patient will be continued on IV antibiotics for another day and probable discharge home tomorrow. 11/01: Patient states that her stools are kind of formed. She denies any nausea or vomiting. She had her breakfast for the first time today. She has been seen by general surgery with plan for follow-up in the office regarding hernia repair. Patient has been afebrile, heart rate 67, blood pressure 146/86, pulse ox 98% on room air. Patient will continue on Levaquin and Flagyl for colitis and will also cover for urinary tract infection. Patient will be discharged home today in stable condition. ASSESSMENT AND PLAN 1. Diarrhea secondary to mild acte colitis, C. difficile colitis ruled out. 2. Acute Klebsiella urinary tract infection. 3. Hypertension. 4. Hyperlipidemia. 5. Diabetes mellitus type 2. 6. Glaucoma. 7. Generalized anxiety disorder. 8. Polymyalgia rheumatica. 9. Remote history of tobacco use. 10. Bilateral inguinal hernias, umbilical hernia. DISCHARGE PLAN Home Impression and plan of care have been directed as dictated by the signing physician. Brook Chapin nurse practitioner acting as scribe for signing physician. Patient Condition at Discharge: Good Plan - Discharge Summary Discharge Rx Participant: No New Discharge Prescriptions: New Cholestyramine (with Sugar) [Questran Packet] 4 gm PO BID@1000,1800 #10 packet Continue Aspirin 81 mg PO DAILY Atorvastatin [Lipitor] 10 mg PO DAILY Potassium 99 mg PO DAILY Calcium Carbonate [Calcium] 600 mg PO DAILY Fish Oil/Dha/Epa [Fish Oil 1,200 mg Fish Oil] 1 cap PO DAILY Turmeric-Circumin 500mg 1 tab PO DAILY Loratadine [Claritin] 10 mg PO DAILY PRN PRN Reason: ALLERGIES ALPRAZolam [Xanax] 0.25 mg PO DAILY PRN PRN Reason: Anxiety Ciprofloxacin HCl [Cipro] 500 mg PO Q12HR #14 tablet Cholecalciferol [Vitamin D3 (25 Mcg = 1000 Iu)] 50 mcg PO DAILY Magnesium Oxide 400 mg PO DAILY metFORMIN HCL ER [Glucophage Xr] 1,000 mg PO DAILY Latanoprost/Pf [Latanoprost 0.005% Eye Drop] 1 drop BOTH EYES HS Dorzolamide/Timolol/Pf [Dorzolamide 2%-Timolol 0.5%] 1 drop BOTH EYES BID Albuterol Inhaler [Ventolin Hfa Inhaler] 1 - 2 puff INHALATION RT-QID PRN PRN Reason: Shortness Of Breath predniSONE See Taper PO DAILY Metoprolol Succinate (ER) [Toprol XL] 50 mg PO DAILY #30 tab metroNIDAZOLE [Flagyl] 500 mg PO TID #21 tab Discharge Medication List Aspirin 81 mg PO DAILY 09/16/15 [History] Atorvastatin [Lipitor] 10 mg PO DAILY 09/16/15 [History] Calcium Carbonate [Calcium] 600 mg PO DAILY 09/16/15 [History] Potassium 99 mg PO DAILY 09/16/15 [History] ALPRAZolam [Xanax] 0.25 mg PO DAILY PRN 10/28/20 [History] Albuterol Inhaler [Ventolin Hfa Inhaler] 1 - 2 puff INHALATION RT-QID PRN 10/28/20 [History] Cholecalciferol [Vitamin D3 (25 Mcg = 1000 Iu)] 50 mcg PO DAILY 10/28/20 [History] Dorzolamide/Timolol/Pf [Dorzolamide 2%-Timolol 0.5%] 1 drop BOTH EYES BID 10/28/20 [History] Fish Oil/Dha/Epa [Fish Oil 1,200 mg Fish Oil] 1 cap PO DAILY 10/28/20 [History] Latanoprost/Pf [Latanoprost 0.005% Eye Drop] 1 drop BOTH EYES HS 10/28/20 [History] Loratadine [Claritin] 10 mg PO DAILY PRN 10/28/20 [History] Magnesium Oxide 400 mg PO DAILY 10/28/20 [History] Turmeric-Circumin 500mg 1 tab PO DAILY 10/28/20 [History] metFORMIN HCL ER [Glucophage Xr] 1,000 mg PO DAILY 10/28/20 [History] predniSONE See Taper PO DAILY 10/28/20 [History] Ciprofloxacin HCl [Cipro] 500 mg PO Q12HR #14 tablet 10/29/20 [Rx] Metoprolol Succinate (ER) [Toprol XL] 50 mg PO DAILY #30 tab 10/29/20 [Rx] metroNIDAZOLE [Flagyl] 500 mg PO TID #21 tab 10/29/20 [Rx] Cholestyramine (with Sugar) [Questran Packet] 4 gm PO BID@1000,1800 #10 packet 11/01/20 [Rx] Follow up Appointment(s)/Referral(s): Sarah Sanders MD [STAFF PHYSICIAN] - 11/12/20 1:00 pm Los Ngo MD [Primary Care Provider] - 1 Week Patient Instructions/Handouts: Dehydration (DC), Acute Diarrhea (ED) Discharge Disposition: HOME SELF-CARE
== END 2020-11-01 11:25 | disposition home or self-care (01) ==
LOC: EC 23:03 → 6NMEDSUR 10-30 00:21
PROVIDERS: ADMIT Internal Medicine; ATTEND Internal Medicine
DX: K52.9 Noninfective gastroenteritis and colitis, unspecified (principal); N39.0 Urinary tract infection, site not specified; B96.1 Klebsiella pneumoniae [K. pneumoniae] as the cause of diseases classified elsewhere; I10 Essential (primary) hypertension; E78.5 Hyperlipidemia, unspecified; Z20.822 Contact with and (suspected) exposure to COVID-19; E11.9 Type 2 diabetes mellitus without complications; E83.39 Other disorders of phosphorus metabolism; H40.9 Unspecified glaucoma; E87.6 Hypokalemia; I95.9 Hypotension, unspecified; F41.1 Generalized anxiety disorder; M35.3 Polymyalgia rheumatica; K40.20 Bilateral inguinal hernia, without obstruction or gangrene, not specified as recurrent; K42.9 Umbilical hernia without obstruction or gangrene; N28.1 Cyst of kidney, acquired; Z79.82 Long term (current) use of aspirin; Z79.84 Long term (current) use of oral hypoglycemic drugs; Z79.899 Other long term (current) drug therapy; Z88.5 Allergy status to narcotic agent; Z87.891 Personal history of nicotine dependence; Z90.49 Acquired absence of other specified parts of digestive tract; Z85.09 Personal history of malignant neoplasm of other digestive organs; Z86.19 Personal history of other infectious and parasitic diseases; Z80.3 Family history of malignant neoplasm of breast; Z82.49 Family history of ischemic heart disease and other diseases of the circulatory system
CPT/HCPCS: 96376; 96361 ×3; 96366 ×2; 96368; 96365; 96367; 96375; 99285; 36415; 94640 ×3; 93005; 80053 ×2; 80048; 83605; 83690; 83735 ×2; 84100 ×3; 84132; 84443; 85025 ×2; 81001; 87324; 87086; 87045; 83630; 87077; 87186; 87046; 87635; 71046; 74177; G0378 ×3; J0780; J2405; J1956 ×2; J7512 ×2; C9113 ×2; Q9967

== ENCOUNTER → 2021-04-01 | Outpatient (CLI) | payer MEDICARE ==
--- NOTE | 2021-04-02 10:31 | MM ---
Reason for exam: screening (asymptomatic). Last mammogram was performed 1 year and 3 months ago. History: Patient is postmenopausal and has history of other cancer at age 71. Family history of breast cancer in mother at age 50 and breast cancer in aunt at age 45. 3 benign excisional biopsies of the left breast. 3 benign excisional biopsies of the right breast. Physical Findings: A clinical breast exam by your physician is recommended on an annual basis and results should be correlated with mammographic findings. MG 3D Screening Mammo W/Cad Bilateral CC and MLO view(s) were taken. Prior study comparison: January 04, 2020, bilateral MG 3d screening mammo w/cad. September 23, 2018, bilateral MG 3d screening mammo w/cad. There are scattered fibroglandular densities. There is no discrete abnormality. No significant changes when compared with prior studies. ASSESSMENT: Negative, BI-RAD 1 RECOMMENDATION: Routine screening mammogram of both breasts in 1 year.
== END | disposition home or self-care (01) ==
LOC: RADMAMWWP 09:24
PROVIDERS: ATTEND Family Medicine
DX: Z12.31 Encounter for screening mammogram for malignant neoplasm of breast (principal); Z78.0 Asymptomatic menopausal state
CPT/HCPCS: 77063; 77067

== ENCOUNTER → 2022-04-14 | Outpatient (CLI) | payer MEDICARE ==
--- NOTE | 2022-04-15 09:15 | MM ---
Reason for Exam: Screening (asymptomatic). Last mammogram was performed 1 year(s) and 1 month(s) ago. Patient History: Menarche at age 13. First Full-Term at age 19. Hysterectomy at age 39. Postmenopausal. Other cancer, age 71. Benign Excisional Biopsy on the right side. Benign Excisional Biopsy on the right side. Benign Excisional Biopsy on the right side. Benign Excisional Biopsy on the left side. Benign Excisional Biopsy on the left side. Benign Excisional Biopsy on the left side. Maternal aunt had breast cancer, age 45. Mother had breast cancer, age 50. Risk Values: Kylee 5 year model risk: 3.9%. NCI Lifetime model risk: 4.8%. Prior Study Comparison: 09/23/2018 Bilateral Screening Mammogram, [facility]. 01/04/2020 Bilateral Screening Mammogram, [facility]. 04/01/2021 Bilateral Screening Mammogram, [facility]. Tissue Density: The breast tissue is almost entirely fat. Findings: Analyzed By CAD. There is no suspicious group of microcalcifications or new suspicious mass in either breast. Overall Assessment: Negative, BI-RAD 1 Management: Screening Mammogram of both breasts in 1 year. A clinical breast exam by your physician is recommended on an annual basis and results should be correlated with mammographic findings. [facility] will attempt to contact patient to return for supplemental views and ultrasound if indicated. Electronically signed and approved by: Juan Ojeda DO
== END | disposition home or self-care (01) ==
LOC: RADMAMWWP 09:59
PROVIDERS: ATTEND Family Medicine
DX: Z12.31 Encounter for screening mammogram for malignant neoplasm of breast (principal); Z78.0 Asymptomatic menopausal state; Z80.3 Family history of malignant neoplasm of breast; Z98.890 Other specified postprocedural states
CPT/HCPCS: 77063; 77067